=== PATIENT | male | born 1965 | race Caucasian/White ===

== ENCOUNTER 2020-07-01 11:34 | Inpatient (IN) | payer MEDICAID ==
[~2020-07-01] VITALS: Ht 188 cm; Wt 92.6 kg
[~2020-07-01 11:34] MED LIST: ALLE25CA OR; CELE20TA; DEPA500T2; DEPAKOTE ER PO; DEPLIN; HALO1TAB21 OR; HALO1TAB29 PO; HYDR25TA6; KLON1TAB OR; LIPI20TA; LIPI20TA OR; MINI2CAP PO; NO HOME MEDS; PAXI40TA; PAXI40TA OR; REQU1TAB14; RISP2TAB12 OR; TRAZ100T OR; TRAZ100T2 PO; WELL100T2 OR; WELL100T2 PO; XANA0.5T; ZETI10TA; ZETI10TA OR; ZYPR10TA; ZYPR15TA OR; ZYPR1TAB4 PO; ZYPR20TA OR; ZYPR5TAB OR
[2020-07-01] MEDS ORDERED: PARO20TA3 PO (11:45)
[2020-07-01] MEDS ORDERED: SIMV40TA20 PO (11:45)
[2020-07-01] MEDS ORDERED: OMEP-221 PO (11:45)
[2020-07-01 12:10] LABS: HEMATOCRIT 42.1 % (42.0-52.0); HEMOGLOBIN 14.1 g/dl (13.5-17.5); MEAN CORPUSCULAR HEMOGLOBIN 31.1 pg (27.0-33.0); MEAN CORPUSCULAR HGB CONC 33.5 g/dl (32.0-36.5); MEAN CORPUSCULAR VOLUME 92.9 fl (80.0-96.0); PLATELET COUNT, AUTOMATED 332 10^3/uL (150-450); RED BLOOD COUNT 4.53 10^6/uL (4.30-6.10); WHITE BLOOD COUNT 8.5 10^3/uL (4.0-10.0)
[2020-07-01 12:37] LABS: AMPHETAMINES LEVEL URINE NEGATIVE (NEGATIVE); BARBITURATES URINE NEGATIVE (NEGATIVE); BENZODIAZEPINES URINE NEGATIVE (NEGATIVE); CANNABINOIDS URINE NEGATIVE (NEGATIVE); COCAINE METABOLITE URINE NEGATIVE (NEGATIVE); METHADONE URINE NEGATIVE (NEGATIVE); OPIATES URINE NEGATIVE (NEGATIVE); PHENCYCLIDINE URINE NEGATIVE (NEGATIVE)
[2020-07-01 12:51] LABS: ACETAMINOPHEN LEVEL < 2.0 UG/ML (10.0-30.0); ALBUMIN 4.1 GM/DL (3.2-5.2); ALT/SGPT 25 U/L (12-78); BILIRUBIN,DIRECT 0.1 MG/DL (0.0-0.2); BILIRUBIN,TOTAL 0.4 MG/DL (0.2-1.0); BLOOD UREA NITROGEN 13 MG/DL (7-18); CALCIUM LEVEL 9.6 MG/DL (8.5-10.1); CARBON DIOXIDE LEVEL 30 MEQ/L (21-32); CHLORIDE LEVEL 104 MEQ/L (98-107); CREATININE FOR GFR 1.06 MG/DL (0.70-1.30); ETHYL ALCOHOL (ETHANOL) < 0.003 % (0.000-0.010); GLOMERULAR FILTRATION RATE > 60.0 (>56); GLUCOSE, FASTING 92 MG/DL (70-100); SALICYLATE LEVEL < 1.7 MG/DL (5.0-30.0); SODIUM LEVEL 138 MEQ/L (136-145); TOTAL PROTEIN 7.6 GM/DL (6.4-8.2)
[2020-07-01] MEDS ORDERED: OLAN15TA PO (13:26)
[2020-07-01] MEDS ORDERED: MOM 30ML SUSPENSION UDC PO PRN (15:00)
[2020-07-01] MEDS ORDERED: traZODone 50 MG TAB PO PRN (15:00)
[2020-07-01] MEDS ORDERED: MAALOX 30 ML SUSP *UDC PO PRN (15:00)
[2020-07-01 16:07] VITALS: BP 132/84
[2020-07-01] MEDS ORDERED: OLANZapine 5 MG TAB PO SCH (21:00)
[2020-07-02 06:18] VITALS: BP 123/74
[2020-07-02] MEDS: PARoxetine 20 MG TAB PO SCH (08:29)
[2020-07-02] MEDS: SIMVASTATIN 40 MG TAB PO SCH (08:29)
[2020-07-02] MEDS: OMEPRAZOLE 20 MG CAP PO SCH (08:29)
[2020-07-02] MEDS ORDERED: FLUBLOK(EGG FREE)(QUAD)INFLUENZA VACC 0.5ML SYRINGE 18YRS & OLDER IM ONE (09:00)
--- NOTE | 2020-07-02 10:24 | MHHPEPDOC ---
[facility] History & Physical History and Physical DATE OF ADMISSION: Jul 01, 2020 at 15:43 Subjective HPI: Dayron is admitted to the inpatient mental health unit after he brings himself into the unit. Patient reports a history of schizophrenia and began to think of very strange things such as thoughts that he would be hit by a car or a plane would crash into him. He reports this activity made him feel much more impaired. He was admitted to suicidal thoughts on and off for the past year as well. He has tried different changes such as lowering his caffeine intake and his diet, but it did not change much. He has reportedly grabbed a knife with intent to slit his throat the night before presentation. MEDICATIONS: He also reports that he been off Zyprexa for such a long time and wondered if his medication needed to be adjusted. MEDICAL HISTORY: Reports history of attempts in the past, the patient was admitted on a voluntary status. The patient has a diagnosis of bipolar disorder, last admitted to inpatient mental health in 2012, hes in no current outpatient treatment. SOCIAL HISTORY - LIVING SITUATION: Resides at [facility], lives with his two brothers in [facility]. Objective Affect: Flat. Speech: Monotone. . Thought Form: Linear at times. Thought Content: No evidence of aggressive or homicidal ideation. No evidence of delusions. No thoughts of self harm. No evidence of suicidal ideation. Judgement: Fair-Poor. Insight: Fair-Poor. Assessment F25.9 Schizoaffective disorder, unspecified Plan Continue Paxil and Zyprexa with increase in Zyprexa to 20 mg daily. Term priorities are 1. Risk for suicide and 2. Altered thoughts. Estimated length of stay 1-4 days. Vital Signs Vital Signs Date Time Temp Pulse Resp B/P (MAP) Pulse Ox O2 Delivery O2 Flow Rate FiO2 07/02/20 06:18 98.3 77 12 123/74 (90) Room Air 07/01/20 16:07 96 Laboratory Data 24H Labs Laboratory Tests 2 07/01/20 11:48: Nucleated Red Blood Cells % (auto) 0.0, Anion Gap 4L, Glomerular Filtration Rate > 60.0, Calcium Level 9.6, Total Bilirubin 0.4, Direct Bilirubin 0.1, Aspartate Amino Transf (AST/SGOT) 14, Alanine Aminotransferase (ALT/SGPT) 25, Alkaline Phosphatase 92, Total Protein 7.6, Albumin 4.1, Albumin/Globulin Ratio 1.2, Thyroid Stimulating Hormone (TSH) 2.360, Salicylates Level < 1.7L, Urine Opiates Screen NEGATIVE, Urine Methadone Screen NEGATIVE, Acetaminophen Level < 2.0L, Urine Barbiturates Screen NEGATIVE, Urine Phencyclidine Screen NEGATIVE, Urine Amphetamines Screen NEGATIVE, Urine Benzodiazepines Screen NEGATIVE, Urine Cocaine Metabolite Screen NEGATIVE, Urine Cannabinoids Screen NEGATIVE, Ethyl Alcohol Level < 0.003 CBC/BMP Laboratory Tests 07/01/20 11:48 Medications Scheduled Olanzapine (Olanzapine) 15 Mg Tablet, 15 MG PO QPM, (Reported) Omeprazole (Omeprazole) 40 Mg Capsule.dr, 40 MG PO QAM, (Reported) Paroxetine HCl (Paroxetine HCl) 20 Mg Tablet, 20 MG PO QAM, (Reported) Simvastatin (Simvastatin) 40 Mg Tablet, 40 MG PO QAM, (Reported) Allergies Coded Allergies: No Known Allergies (Verified , 09/09/03) LUIS ENRIQUE ESPINAL DO Jul 02, 2020 10:23
--- NOTE | 2020-07-02 12:30 | HPEPDOC ---
[facility] Medical History & Physical Date of Admission Jul 02, 2020 Date of Service: Jul 02, 2020 Attending Physician: ERIK ALMANZA MD History and Physical CHIEF COMPLAINT: suicidal ideation HISTORY OF PRESENT ILLNESS: Mr. Nunez is a 55-year-old male with history of hypertension, schizoaffective disorder, currently not on treatment. He presented to the ED after feelings of tremendous anxiety, overwhelming emotions, which led him to develop suicidal ideation. He went to the kitchen knife with intent to harm himself. He grabbed a kitchen knife and began rubbing it on his neck and abdomen, but the knife was too dull as he reports. He requested to be admitted to [facility] for safety. Vitals are normal and stable. There are no acute abnormalities on lab work. PAST MEDICAL HISTORY: Schizoaffective disorder HTN Hypercholesterolemia GERD PAST SURGICAL HISTORY: hx of lipoma excision, back of R leg, R forearm x 2 SOCIAL HISTORY: Patient denies smoking Patient denies etoh use Patient denies illicit drug use ALLERGIES: Please see below. REVIEW OF SYSTEMS: CONSTITUTIONAL: patient denies fevers, chills HEENT: patient denies blurred vision, loss of vision, headache,. CARDIOVASCULAR: patient denies chest pain, palpitations. RESPIRATORY: patient denies shortness of breath, cough, hemoptysis. GASTROINTESTINAL: patient denies abdominal pain, n/v/d, blood in stool. GENITOURINARY: patient denies dysuria, discharge. SKIN: patient denies rashes. MUSCULOSKELETAL: patient denies joint pain, neck pain. NEUROLOGICAL: patient denies focal weakness, numbness, seizures. PSYCHIATRIC: patient denies SI/HI. ENDOCRINE: patient denies polyuria, heat intolerance, cold intolerance. HEMATOLOGIC/LYMPHATIC: patient denies easy bruising. HOME MEDICATIONS: Please see below. PHYSICAL EXAMINATION: VITAL SIGNS: please see below General: NAD, comfortable HEENT: PERRLA, EOMI, sclerae clear Neck: supple, normal ROM, no JVD Respiratory: lungs CTAB, no wheeze, no rales, no crackles CVS: RRR, normal S1, S2, no murmurs Abdo: soft, no masses, no hepatosplenomegaly, BS+, no rebound tenderness Extremities: no edema, pulses 2+ MSK: no joint deformities, normal ROM Neuro: no focal neuro deficits, moving all 4 extremities, CN2-12 intact. Strength 5/5 in all 4 extremities. No nystagmus. Psych: calm, cooperative, AAO x 3 LABORATORY DATA: See below. MICROBIOLOGY: Please see below. ASSESSMENT: 55-year-old male with a history of hypertension and schizoaffective disorder, admitted to [facility] for anxiety and suicidal ideation. Hospitalist was consulted to assist in management of medical issues. PLAN: #Suicidal ideation: per psychiatry #Schizoaffective disorder: #HTN: BP well controlled off medication #Hypercholesterolemia: takes simvastatin. check lipid panel as outpatient, cardiac risk factor management per PCP. #GERD: ppi Thank you for the consult. Please re-consult as needed. Vital Signs Vital Signs Date Time Temp Pulse Resp B/P (MAP) Pulse Ox O2 Delivery O2 Flow Rate FiO2 07/02/20 06:18 98.3 77 12 123/74 (90) Room Air 07/01/20 16:07 96 Home Medications Scheduled Olanzapine (Olanzapine) 15 Mg Tablet, 15 MG PO QPM Omeprazole (Omeprazole) 40 Mg Capsule.dr, 40 MG PO QAM Paroxetine HCl (Paroxetine HCl) 20 Mg Tablet, 20 MG PO QAM Simvastatin (Simvastatin) 40 Mg Tablet, 40 MG PO QAM Allergies Coded Allergies: No Known Allergies (Verified , 09/09/03) A-FIB/CHADSVASC A-FIB History Current/History of A-Fib/PAF?: No Current PO Anticoag Therapy: No ERIK ALMANZA MD Jul 02, 2020 12:30
[2020-07-02 16:11] VITALS: BP 132/79
[2020-07-02] MEDS: OLANZapine 10 MG TAB PO SCH (20:51)
[2020-07-03 06:22] VITALS: BP 132/74
[2020-07-03] MEDS: OMEPRAZOLE 20 MG CAP PO SCH (09:45)
[2020-07-03] MEDS: PARoxetine 20 MG TAB PO SCH (09:45)
[2020-07-03] MEDS: SIMVASTATIN 40 MG TAB PO SCH (09:45)
--- NOTE | 2020-07-03 15:51 | MHIPNPDOC ---
[facility] Progress Note Progress Note DATE OF SERVICE: 07/03/20 HISTORY: Patient is a 55 year old Single, Disabled, Domiciled, Male who admitted to [facility] after he had reported increased psychotic symptoms of broad [place], rumination and preoccupation that the house may burn, or something bad might happen. He reports that he feels that due to exertion that this increased his anxiety which lead to increased anxiety, preoccupation that he was hearing the TV and segments of the TV became real life for him. He was reporting wishing to be . VITAL SIGNS: See below. NEW TEST RESULTS: CURRENT MEDICATIONS: See below. MENTAL STATUS EXAMINATION: Patient is a 55-year old male, who is reporting feeling some improvement . Speech: Is fluid and conversant Language skills are good. Thought processes including: reality-based, linear and goal oriented. Thought content: reports mild broadcasting and mild paranoia, decreasing depression and anxiety . Abstract reasoning, and computation: good. Description of associations: mild paranoia, reports that TV broadcast and what he watches feels like a predictor of what might happen in his life. I.E. Fires on TV = his house will burn to the ground Description of abnormal or psychotic thoughts: paranoia that the TV predicts what will happen to him Judgment: fair Insight: Fair Orientation: Alert and oriented to person, place, time and situation Recent and remote memory: intact Attention span and concentration: good Language: expansive Fund of knowledge: average Mood: mildly depressed Affect: congruent with mood DIAGNOSES: 1. Schizoaffective Disorder ASSESSMENT: Patient is reporting that he is feeling calm. States that this admission is better than his five other admissions, in that he is improving faster, feels calmer. He was calm and cooperative in the interview. MANAGEMENT PLAN: We will discharge him when he is stable. He may be stable for discharge tomorrow. TIME SPENT: 20 minutes. Vital Signs Vital Signs Date Time Temp Pulse Resp B/P (MAP) Pulse Ox O2 Delivery O2 Flow Rate FiO2 07/03/20 06:22 96.7 84 18 132/74 (93) 99 Room Air Current Medications Current Medications Medications (Trade) Dose Ordered Sig/Gregg Route PRN Reason Start Time Stop Time Status Last Admin Dose Admin Acetaminophen (Tylenol Tab) 650 mg Q6HP PRN PO PAIN OR FEVER 07/01/20 15:00 Al Hydrox/Mg Hydrox/Simethicone (Mylanta) 30 ml Q4HP PRN PO INDIGESTION 07/01/20 15:00 Home Med (Med Rec Complete!) ASDIRECTED XX 07/01/20 13:30 07/01/20 13:29 DC Magnesium Hydroxide (Milk Of Magnesia) 30 ml DAILYPRN PRN PO CONSTIPATION 07/01/20 15:00 Olanzapine (ZyPREXA) 15 mg QPM PO 07/01/20 21:00 07/02/20 16:07 DC 07/01/20 20:49 Olanzapine (ZyPREXA) 20 mg QPM PO 07/02/20 21:00 07/02/20 20:51 Omeprazole (PriLOSEC) 40 mg QAM PO 07/02/20 09:00 07/03/20 09:45 Paroxetine HCl (PAXil) 20 mg QAM PO 07/02/20 09:00 07/03/20 09:45 Simvastatin (Zocor) 40 mg QAM PO 07/02/20 09:00 07/03/20 09:45 Trazodone HCl (Desyrel) 50 mg QHSP PRN PO INSOMNIA 07/01/20 15:00 Allergies Coded Allergies: No Known Allergies (Verified , 09/09/03) JOSE RAMON SANTIAGO NP Jul 03, 2020 13:09
[2020-07-03 17:35] VITALS: BP 141/85
[2020-07-03] MEDS: OLANZapine 10 MG TAB PO SCH (21:17)
[2020-07-04] MEDS: OMEPRAZOLE 20 MG CAP PO SCH (08:39)
[2020-07-04] MEDS: PARoxetine 20 MG TAB PO SCH (08:39)
[2020-07-04] MEDS: SIMVASTATIN 40 MG TAB PO SCH (08:39)
[2020-07-04] MEDS: ACETAMINOPHEN TAB 650MG DOSE (2X325MG) PO PRN ×2 (08:41→16:44)
--- NOTE | 2020-07-04 09:57 | MHIPNPDOC ---
[facility] Progress Note Progress Note DATE OF SERVICE: 07/04/20 HISTORY: Patient is a 55 year old Single, Disabled, Domiciled, Male who admitted to [facility] after he had reported increased psychotic symptoms of broadcasting, rumination and preoccupation that the house may burn, or something bad might happen. He reports that he feels that due to exertion that this increased his anxiety which lead to increased anxiety, preoccupation that he was hearing the TV and segments of the TV became real life for him. He was reporting wishing to be . VITAL SIGNS: See below. NEW TEST RESULTS: CURRENT MEDICATIONS: See below. MENTAL STATUS EXAMINATION: Patient is a 55-year old male, who is reporting depression and anxiety with suicidal ideation. He appears his stated age, his hygiene and grooming is fair. He makes good eye contact. He states he us feeling some improvement in depressive and anxiety symptoms today. Speech: Is fluid and conversant Language skills are good. Thought processes including: reality-based, linear and goal oriented. Mildly ruminative Thought content: decreasing depression and anxiety. Reported mild delusional thinking about the TV broadcasting ideas to him. Abstract reasoning, and computation: good. Description of associations: decreased paranoia Description of abnormal or psychotic thoughts: paranoia that the TV predicts what will happen to him Judgment: fair Insight: Fair Orientation: Alert and oriented to person, place, time and situation Recent and remote memory: intact Attention span and concentration: good Language: expansive Fund of knowledge: average Mood: I am feeling fine, observed as anxious and worried Affect: congruent with mood DIAGNOSES: 1. Schizoaffective Disorder ASSESSMENT: Reporting no depression, no anxiety. 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 Reports that in the past, he has been discharged too soon, and he feels that based on past experiences he should not leave to early. He wants the medicines to build in his system Patient observed as anxious and worried. He was calm and cooperative in the interview. MANAGEMENT PLAN: We will discharge him when he is stable. Patient was educated on his medications. At this time, he feels strongly that if he returns home with anxiety of pushing himself to work as hard as his brothers, his symptoms would be so tenuous that rehospitalization would be likely. TIME SPENT: 15 minutes. Vital Signs Vital Signs Date Time Temp Pulse Resp B/P (MAP) Pulse Ox O2 Delivery O2 Flow Rate FiO2 07/03/20 17:35 97.8 86 16 141/85 (103) 100 07/03/20 06:22 Room Air Current Medications Current Medications Medications (Trade) Dose Ordered Sig/Gregg Route PRN Reason Start Time Stop Time Status Last Admin Dose Admin Acetaminophen (Tylenol Tab) 650 mg Q6HP PRN PO PAIN OR FEVER 07/01/20 15:00 07/04/20 08:41 Al Hydrox/Mg Hydrox/Simethicone (Mylanta) 30 ml Q4HP PRN PO INDIGESTION 07/01/20 15:00 Home Med (Med Rec Complete!) ASDIRECTED XX 07/01/20 13:30 07/01/20 13:29 DC Magnesium Hydroxide (Milk Of Magnesia) 30 ml DAILYPRN PRN PO CONSTIPATION 07/01/20 15:00 Olanzapine (ZyPREXA) 15 mg QPM PO 07/01/20 21:00 07/02/20 16:07 DC 07/01/20 20:49 Olanzapine (ZyPREXA) 20 mg QPM PO 07/02/20 21:00 07/03/20 21:17 Omeprazole (PriLOSEC) 40 mg QAM PO 07/02/20 09:00 07/04/20 08:39 Paroxetine HCl (PAXil) 20 mg QAM PO 07/02/20 09:00 07/04/20 08:39 Simvastatin (Zocor) 40 mg QAM PO 07/02/20 09:00 07/04/20 08:39 Trazodone HCl (Desyrel) 50 mg QHSP PRN PO INSOMNIA 07/01/20 15:00 Allergies Coded Allergies: No Known Allergies (Verified , 09/09/03) JOSE RAMON SANTIAGO NP Jul 04, 2020 09:57
[2020-07-04 17:57] VITALS: BP 143/89
[2020-07-04] MEDS: OLANZapine 10 MG TAB PO SCH (20:52)
[2020-07-05 06:46] VITALS: BP 132/77
[2020-07-05] MEDS: OMEPRAZOLE 20 MG CAP PO SCH (08:48)
[2020-07-05] MEDS: PARoxetine 20 MG TAB PO SCH (08:48)
[2020-07-05] MEDS: SIMVASTATIN 40 MG TAB PO SCH (08:48)
[2020-07-05] MEDS ORDERED: PARO20TA3 PO (12:55)
[2020-07-05] MEDS ORDERED: OMEP-221 PO (12:55)
[2020-07-05] MEDS ORDERED: OLAN10TA2 PO (12:55)
[2020-07-05] MEDS ORDERED: SIMV40TA20 PO (12:55)
--- NOTE | 2020-07-05 15:28 | MHIPNPDOC ---
[facility] Progress Note Progress Note DATE OF SERVICE: 07/05/20 HISTORY: Patient is a 55 year old Single, Disabled, Domiciled, Male who admitted to [facility] after he had reported increased psychotic symptoms of broadcasting, rumination and preoccupation that the house may burn, or something bad might happen. He reports that he feels that due to exertion that this increased his anxiety which lead to increased anxiety, preoccupation that he was hearing the TV and segments of the TV became real life for him. He was reporting wishing to be . He states that he had a knife to his throat but the knife was too dull. VITAL SIGNS: See below. NEW TEST RESULTS: CURRENT MEDICATIONS: See below. MENTAL STATUS EXAMINATION: Patient is a 55-year old male, who had reported depression and anxiety with suicidal ideation. He appears his stated age, his hygiene and grooming is fair. He makes good eye contact. He states he is feeling better and that his depression and anxiety is improved to the point that he feels that he should be discharged tomorrow Speech: Is fluid and conversant Language skills are good. Thought processes including: reality-based, linear and goal oriented. Thought content: decreasing depression and anxiety. Abstract reasoning, and computation: good. Description of associations: no reports of paranoia Description of abnormal or psychotic thoughts: none noted or reported Judgment: fair Insight: Fair Orientation: Alert and oriented to person, place, time and situation Recent and remote memory: intact Attention span and concentration: good Language: expansive Fund of knowledge: average Mood: I am feeling good Affect: congruent with mood DIAGNOSES: 1. Schizoaffective Disorder ASSESSMENT: Reporting no depression, no anxiety. He was calm and cooperative in the interview. Patient reports he had a good conversation with his sister and that he feels he can manage at home. His family is supportive and can help him with reducing his stressors. He feels that he can manage at home. MANAGEMENT PLAN: Patient reports being stable. Patient was educated on his medications. At this time, he feels strongly that he can be discharged tomorrow. Orders for discharge place and medications were electronically sent to [facility] in [place] TIME SPENT: 25 minutes. Vital Signs Vital Signs Date Time Temp Pulse Resp B/P (MAP) Pulse Ox O2 Delivery O2 Flow Rate FiO2 07/05/20 06:46 97.2 79 16 132/77 (95) 98 10/5/20 06:22 Room Air Current Medications Current Medications Medications (Trade) Dose Ordered Sig/Gregg Route PRN Reason Start Time Stop Time Status Last Admin Dose Admin Acetaminophen (Tylenol Tab) 650 mg Q6HP PRN PO PAIN OR FEVER 07/01/20 15:00 07/04/20 16:44 Al Hydrox/Mg Hydrox/Simethicone (Mylanta) 30 ml Q4HP PRN PO INDIGESTION 07/01/20 15:00 Home Med (Med Rec Complete!) ASDIRECTED XX 07/01/20 13:30 07/01/20 13:29 DC Magnesium Hydroxide (Milk Of Magnesia) 30 ml DAILYPRN PRN PO CONSTIPATION 07/01/20 15:00 Olanzapine (ZyPREXA) 15 mg QPM PO 07/01/20 21:00 07/02/20 16:07 DC 07/01/20 20:49 Olanzapine (ZyPREXA) 20 mg QPM PO 07/02/20 21:00 07/04/20 20:52 Omeprazole (PriLOSEC) 40 mg QAM PO 07/02/20 09:00 07/05/20 08:48 Paroxetine HCl (PAXil) 20 mg QAM PO 07/02/20 09:00 07/05/20 08:48 Simvastatin (Zocor) 40 mg QAM PO 07/02/20 09:00 07/05/20 08:48 Trazodone HCl (Desyrel) 50 mg QHSP PRN PO INSOMNIA 07/01/20 15:00 Allergies Coded Allergies: No Known Allergies (Verified , 09/09/03) JOSE RAMON SANTIAGO NP Jul 05, 2020 15:18
[2020-07-05 17:13] VITALS: BP 129/73
[2020-07-05] MEDS: OLANZapine 10 MG TAB PO SCH (20:35)
[2020-07-06 06:26] VITALS: BP 121/74
[2020-07-06] MEDS: PARoxetine 20 MG TAB PO SCH (09:13)
[2020-07-06] MEDS: OMEPRAZOLE 20 MG CAP PO SCH (09:13)
[2020-07-06] MEDS: SIMVASTATIN 40 MG TAB PO SCH (09:13)
--- NOTE | 2020-07-06 15:15 | MHDSPDOC ---
[facility] Discharge Summary Discharge Summary DATE OF ADMISSION: Jul 01, 2020 at 15:43 DATE OF DISCHARGE: Jul 06, 2020 at 10:10 DISCHARGE DIAGNOSES: 1. Schizoaffective Disorder REASON FOR ADMISSION: Patient is a 55 year old Single, Disabled, Domiciled, Male who admitted to [facility] after he had reported increased psychotic symptoms of broadcasting, rumination and preoccupation that the house may burn, or something bad might happen. He reports that he feels that due to exertion that this increased his anxiety which lead to increased anxiety, preoccupation that he was hearing the TV and segments of the TV became real life for him. He was reporting wishing to be . He states that he had a knife to his throat but the knife was too dull. Patient lives with his two older brothers, he states that he was helping his brothers get wood cut for the winter. This is task is done briskly and he reports that during this chore, he could feel himself becoming anxious, overwhelmed and nervous. He feels that this was the catalyst to his decompensation. CONSULTANTS INVOLVED: See Medical H + P consult by Medical provider TREATMENT AND PROGRESS ON THE UNIT : Patient was admitted to the [facility] on a 9.39 legal status he was afforded the following treatment modalities: 1) Individual Therapy 2) Group Therapy 3) Medication Management 4) Milieu Therapy 5) Safe Environment HOSPITAL COURSE: Patient was reporting depression, feelings of being overwhelmed and suicidal thinking. 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 He states that he felt stressed, overwhelmed and increasingly had depressive symptoms and suicidal thoughts. We increased his Zyprexa 15 mg to Zyprexa 20 mg which he reported was effective and he stated that this was the best he had felt compared to all other hospitalizations. DISCHARGE ASSESSMENT: Patient is stable, he reports himself being stable "I don't feel depressed or anxious, and I have not thought about hurting myself" He reports that his siblings have rallied behind him and state that they will be supportive and reduce his workload. Patient states that he would like the opportunity to get out of his home more often, complaining that he doesn't have much socialization until his brothers are home. MENTAL STATUS EXAMINATION ON DISCHARGE: Patient is a 55-year old male, who had reported depression and anxiety with suicidal ideation. He appears his stated age, his hygiene and grooming is fair. He makes good eye contact. He states he is feeling better and that his depression and anxiety is improved to the point that he feels that he should be discharged tomorrow Speech: Is fluid and conversant Language skills are good. Thought processes including: reality-based, linear and goal oriented. Thought content: denied depression and anxiety. No suicidal ideation Abstract reasoning, and computation: good. Description of associations: no reports of paranoia Description of abnormal or psychotic thoughts: none noted or reported Judgment: fair Insight: Fair Orientation: Alert and oriented to person, place, time and situation Recent and remote memory: intact Attention span and concentration: good Language: expansive Fund of knowledge: average Mood: I am feeling good Affect: congruent with mood MEDICATIONS ON DISCHARGE: See Medication Reconciliation PLAN/FOLLOWUP ARRANGEMENTS: [facility]. Patient's sister called, s/p his discharge and reported that he could not get his Zyprexa Rx filled due to insurance not authorizing it. Resource Development Manager attempted to get pre-authorization with no results. Resource Development Manager called sister to reinforce taking his medications at home until he is able to fill the increased Zyprexa order The amount of time spent in the coordination of care for this patient was approximately 20 minutes. Vital Signs/I&Os Vital Signs Date Time Temp Pulse Resp B/P (MAP) Pulse Ox O2 Delivery O2 Flow Rate FiO2 07/06/20 06:26 97.9 76 16 121/74 (90) 97 Room Air Medications Scheduled Olanzapine (Olanzapine) 10 Mg Tablet, 20 MG PO QPM for Antipsychotic, #14 Omeprazole (Omeprazole) 40 Mg Capsule.dr, 40 MG PO QAM for Acid Reflux, #7 Paroxetine HCl (Paroxetine HCl) 20 Mg Tablet, 20 MG PO QAM for Depression, #7 Simvastatin (Simvastatin) 40 Mg Tablet, 40 MG PO QAM for Cholesterol, #7 Allergies Coded Allergies: No Known Allergies (Verified , 09/09/03) JOSE RAMON SANTIAGO NP Jul 06, 2020 15:15
[2020-07-07] MEDS ORDERED: ZYPR15TA PO (13:54)
== END 2020-07-06 10:10 | disposition home or self-care (01) | DRG 750 ==
LOC: M ED 11:34 → M ED INP 15:43 → M PSY 16:00
PROVIDERS: ADMIT Psychiatry & Neurology Addiction Medicine; ATTEND Psychiatry & Neurology Psychiatry
DX: F25.9 Schizoaffective disorder, unspecified (principal); I10 Essential (primary) hypertension; E78.00 Pure hypercholesterolemia, unspecified; K21.9 Gastro-esophageal reflux disease without esophagitis; Z79.899 Other long term (current) drug therapy

== ENCOUNTER 2021-06-25 16:25 | Inpatient (IN) | payer MEDICAID, OTHER ==
[~2021-06-25] VITALS: Ht 188 cm; Wt 75.8 kg
[~2021-06-25 16:25] MED LIST changes: +OLAN15TA13 PO; +OLAN1TAB20 PO; +OMEP40CA5 PO; +PARO20TA3 PO; +SIMV40TA20 PO; +ZYPR15TA PO
[2021-06-25] MEDS ORDERED: OLAN20TA14 PO (16:35)
[2021-06-25] MEDS ORDERED: SIMV40TA20 PO (18:38)
[2021-06-25] MEDS ORDERED: OMEP40CA5 PO (18:38)
[2021-06-25] MEDS ORDERED: PARO20TA4 PO (18:38)
[2021-06-25] MEDS ORDERED: HOME MED LIST COMPLETE! XX SCH (18:40)
[2021-06-25] MEDS ORDERED: OLANZapine ORAL DISINTEGRATING TAB 5MG PO PRN (19:45)
[2021-06-25] MEDS ORDERED: ACETAMINOPHEN TAB 650MG DOSE (2X325MG) PO PRN (19:45)
[2021-06-25] MEDS ORDERED: MAALOX 30 ML SUSP *UDC PO PRN (19:45)
[2021-06-25] MEDS ORDERED: MOM 30ML SUSPENSION UDC PO PRN (19:45)
[2021-06-25] MEDS ORDERED: PALIPERIDONE 6 MG ER TAB (INVEGA) PO SCH (21:00)
[2021-06-25 22:24] VITALS: BP 152/90
[2021-06-25] MEDS: SIMVASTATIN 40 MG TAB PO SCH (22:56)
[2021-06-25] MEDS: traZODone 50 MG TAB PO PRN (22:56)
[2021-06-26 05:47] VITALS: BP 135/73
[2021-06-26] MEDS: PARoxetine 20MG TABLET PO SCH (08:17)
[2021-06-26] MEDS: OMEPRAZOLE 20MG CAP PO SCH (08:17)
[2021-06-26 16:11] VITALS: BP 110/58
[2021-06-26] MEDS: OLANZapine 10 MG TAB PO SCH (21:42)
[2021-06-26] MEDS: SIMVASTATIN 40 MG TAB PO SCH (21:42)
[2021-06-27 06:44] VITALS: BP 114/64
[2021-06-27 07:18] LABS: CHOLESTEROL RISK RATIO 3.581 (<5)
[2021-06-27] MEDS: OMEPRAZOLE 20MG CAP PO SCH (08:49)
[2021-06-27] MEDS: PARoxetine 20MG TABLET PO SCH (08:50)
[2021-06-27 16:18] VITALS: BP 113/69
[2021-06-27] MEDS: traZODone 50 MG TAB PO PRN (22:54)
[2021-06-27] MEDS: SIMVASTATIN 40 MG TAB PO SCH (22:56)
[2021-06-27] MEDS: OLANZapine 10 MG TAB PO SCH (22:56)
[2021-06-28 07:10] VITALS: BP 144/87
[2021-06-28] MEDS: OMEPRAZOLE 20MG CAP PO SCH (10:21)
[2021-06-28] MEDS: PARoxetine 20MG TABLET PO SCH (10:22)
[2021-06-28 16:00] VITALS: BP 111/82
[2021-06-28] MEDS ORDERED: ARIPiprazole 10 MG TAB PO SCH (17:00)
[2021-06-28] MEDS ORDERED: OLANZapine 10 MG TAB PO SCH (21:00)
[2021-06-28] MEDS: SIMVASTATIN 40 MG TAB PO SCH (21:01)
[2021-06-29 06:28] VITALS: BP 129/66
[2021-06-29] MEDS: PARoxetine 20MG TABLET PO SCH (08:41)
[2021-06-29] MEDS: OMEPRAZOLE 20MG CAP PO SCH (08:41)
[2021-06-29] MEDS ORDERED: PALIPERIDONE 6 MG ER TAB (INVEGA) PO SCH (09:00)
[2021-06-29] MEDS: OLANZapine ORAL DISINTEGRATING TAB 5MG PO PRN (09:35)
[2021-06-29] MEDS ORDERED: BENZTROPINE 0.5 MG TAB PO PRN (10:50)
[2021-06-29] MEDS ORDERED: LORazepam 1 MG TAB PO ONE (14:25)
[2021-06-29 16:14] VITALS: BP 132/70
[2021-06-29] MEDS: OLANZapine 5 MG TAB PO SCH (21:49)
[2021-06-29] MEDS: SIMVASTATIN 40 MG TAB PO SCH (21:49)
[2021-06-30 06:16] VITALS: BP 122/61
[2021-06-30] MEDS: PALIPERIDONE 3 MG ER TAB (INVEGA) PO SCH (09:16)
[2021-06-30] MEDS: OMEPRAZOLE 20MG CAP PO SCH (09:16)
[2021-06-30] MEDS: PARoxetine 20MG TABLET PO SCH (09:16)
[2021-06-30 14:51] VITALS: BP 135/62
[2021-06-30] MEDS: LORazepam 0.5 MG TAB PO PRN (14:54)
[2021-06-30] MEDS ORDERED: LORazepam 0.5 MG TAB PO ONE ×2 (15:45→16:00)
[2021-06-30] MEDS: OLANZapine 5 MG TAB PO SCH (20:12)
[2021-06-30] MEDS: SIMVASTATIN 40 MG TAB PO SCH (20:12)
[2021-07-01 06:03] VITALS: BP 122/69
[2021-07-01] MEDS: OMEPRAZOLE 20MG CAP PO SCH (08:53)
[2021-07-01] MEDS: PARoxetine 20MG TABLET PO SCH (08:53)
[2021-07-01] MEDS: PALIPERIDONE 3 MG ER TAB (INVEGA) PO SCH (08:53)
[2021-07-01 16:38] VITALS: BP 103/88
[2021-07-01] MEDS: SIMVASTATIN 40 MG TAB PO SCH (23:07)
[2021-07-02 07:12] VITALS: BP 116/61
[2021-07-02] MEDS: PALIPERIDONE 3 MG ER TAB (INVEGA) PO SCH (09:47)
[2021-07-02] MEDS: OMEPRAZOLE 20MG CAP PO SCH (09:47)
[2021-07-02] MEDS: PARoxetine 20MG TABLET PO SCH (09:47)
[2021-07-02] MEDS ORDERED: TUBERCULIN PPD 5 UNITS/0.1 ML ID ONE (12:00)
[2021-07-02 18:11] VITALS: BP 136/86
[2021-07-02] MEDS: traZODone 50 MG TAB PO PRN (20:48)
[2021-07-02] MEDS: SIMVASTATIN 40 MG TAB PO SCH (20:48)
[2021-07-03] MEDS: LORazepam 0.5 MG TAB PO PRN (02:10)
[2021-07-03 04:10] VITALS: BP 99/60
[2021-07-03 04:30] VITALS: BP 139/59
[2021-07-03 06:42] VITALS: BP 122/61
[2021-07-03 07:30] LABS: BASO % 0.2 % (0.0-1.0); EOS # 0.1 10^3/uL (0.0-0.5); EOS % 0.7 % (0.0-3.0); HEMATOCRIT 39.6 % (42.0-52.0); HEMOGLOBIN 13.4 g/dl (13.5-17.5); LYMPH % 8.6 % (24.0-44.0); MEAN CORPUSCULAR HEMOGLOBIN 32.4 pg (27.0-33.0); MEAN CORPUSCULAR HGB CONC 33.8 g/dl (32.0-36.5); MEAN CORPUSCULAR VOLUME 95.9 fl (80.0-96.0); MONO # 1.2 10^3/uL (0.0-0.8); MONO % 9.7 % (2.0-8.0); NEUTROPHILS # 9.8 10^3/uL (1.5-8.5); NEUTROPHILS % 80.5 % (36.0-66.0); PLATELET COUNT, AUTOMATED 285 10^3/uL (150-450); RED BLOOD COUNT 4.13 10^6/uL (4.30-6.10); WHITE BLOOD COUNT 12.1 10^3/uL (4.0-10.0)
[2021-07-03 07:47] LABS: ALBUMIN 3.6 GM/DL (3.2-5.2); ALT/SGPT 27 U/L (12-78); BILIRUBIN,TOTAL 0.4 MG/DL (0.2-1.0); BLOOD UREA NITROGEN 14 MG/DL (7-18); CALCIUM LEVEL 9.7 MG/DL (8.5-10.1); CARBON DIOXIDE LEVEL 29 MEQ/L (21-32); CHLORIDE LEVEL 107 MEQ/L (98-107); CREATININE FOR GFR 1.22 MG/DL (0.70-1.30); GLOMERULAR FILTRATION RATE > 60.0 (>56); GLUCOSE, FASTING 108 MG/DL (70-100); MAGNESIUM LEVEL 2.2 MG/DL (1.8-2.4); POTASSIUM SERUM 3.6 MEQ/L (3.5-5.1); SODIUM LEVEL 142 MEQ/L (136-145); TOTAL PROTEIN 6.6 GM/DL (6.4-8.2)
[2021-07-03] MEDS: PALIPERIDONE 3 MG ER TAB (INVEGA) PO SCH (08:51)
[2021-07-03] MEDS: PARoxetine 20MG TABLET PO SCH (08:51)
[2021-07-03] MEDS: OMEPRAZOLE 20MG CAP PO SCH (08:51)
[2021-07-03] MEDS ORDERED: PALIPERIDONE PALMITATE 234MG/1.5ML INJ (INVEGA)(FREE PSY INPT ONLY) IM ONE (09:00)
[2021-07-03 19:23] VITALS: BP 120/69
[2021-07-03] MEDS: SIMVASTATIN 40 MG TAB PO SCH (23:13)
[2021-07-04 06:00] VITALS: BP 115/58
[2021-07-04] MEDS: OMEPRAZOLE 20MG CAP PO SCH (08:25)
[2021-07-04] MEDS: PARoxetine 20MG TABLET PO SCH (08:26)
[2021-07-04] MEDS: PALIPERIDONE 3 MG ER TAB (INVEGA) PO SCH (09:00)
[2021-07-04] MEDS ORDERED: PALIPERIDONE 3 MG ER TAB (INVEGA) PO SCH (09:00)
[2021-07-04] MEDS ORDERED: PPD DOCUMENTATION ENTRY MISC XX ONE (12:00)
[2021-07-04] MEDS ORDERED: BENZTROPINE 2 MG TAB PO PRN (14:35)
[2021-07-04 14:36] VITALS: BP 138/76
[2021-07-04 19:25] VITALS: BP 124/70
[2021-07-04] MEDS: SIMVASTATIN 40 MG TAB PO SCH (21:53)
[2021-07-05 06:30] VITALS: BP 122/60
[2021-07-05] MEDS ORDERED: PALIPERIDONE 3 MG ER TAB (INVEGA) PO SCH ×3 (09:00)
[2021-07-05] MEDS: buPROPion **XL** TABLET 150MG (WELLBUTRIN XL) PO SCH (09:14)
[2021-07-05] MEDS: PALIPERIDONE 3 MG ER TAB (INVEGA) PO SCH ×2 (09:14→20:01)
[2021-07-05] MEDS: OMEPRAZOLE 20MG CAP PO SCH (09:14)
[2021-07-05] MEDS: PARoxetine 20MG TABLET PO SCH (09:14)
[2021-07-05 11:13] LABS: RSV AMPLIFICATION NEGATIVE (NEGATIVE)
[2021-07-05 16:17] VITALS: BP 108/55
[2021-07-05 19:06] LABS: BASO % 0.3 % (0.0-1.0); EOS # 0.1 10^3/uL (0.0-0.5); EOS % 1.6 % (0.0-3.0); HEMATOCRIT 39.1 % (42.0-52.0); HEMOGLOBIN 13.1 g/dl (13.5-17.5); LYMPH # 1.1 10^3/uL (1.5-5.0); MEAN CORPUSCULAR HEMOGLOBIN 32.2 pg (27.0-33.0); MEAN CORPUSCULAR HGB CONC 33.5 g/dl (32.0-36.5); MEAN CORPUSCULAR VOLUME 96.1 fl (80.0-96.0); MONO # 0.7 10^3/uL (0.0-0.8); MONO % 7.9 % (2.0-8.0); NEUTROPHILS # 6.8 10^3/uL (1.5-8.5); NEUTROPHILS % 77.9 % (36.0-66.0); PLATELET COUNT, AUTOMATED 286 10^3/uL (150-450); RED BLOOD COUNT 4.07 10^6/uL (4.30-6.10); WHITE BLOOD COUNT 8.8 10^3/uL (4.0-10.0)
[2021-07-05 19:33] LABS: ALBUMIN 3.6 GM/DL (3.2-5.2); ALT/SGPT 26 U/L (12-78); BILIRUBIN,TOTAL 0.2 MG/DL (0.2-1.0); BLOOD UREA NITROGEN 19 MG/DL (7-18); CALCIUM LEVEL 9.4 MG/DL (8.5-10.1); CARBON DIOXIDE LEVEL 28 MEQ/L (21-32); CHLORIDE LEVEL 107 MEQ/L (98-107); CREATININE FOR GFR 1.19 MG/DL (0.70-1.30); GLOMERULAR FILTRATION RATE > 60.0 (>56); GLUCOSE, FASTING 144 MG/DL (70-100); MAGNESIUM LEVEL 2.2 MG/DL (1.8-2.4); POTASSIUM SERUM 3.9 MEQ/L (3.5-5.1); SODIUM LEVEL 142 MEQ/L (136-145); TOTAL PROTEIN 6.9 GM/DL (6.4-8.2)
[2021-07-05] MEDS: SIMVASTATIN 40 MG TAB PO SCH (20:01)
[2021-07-06 06:22] VITALS: BP 138/65
[2021-07-06] MEDS: buPROPion **XL** TABLET 150MG (WELLBUTRIN XL) PO SCH (10:47)
[2021-07-06] MEDS: OMEPRAZOLE 20MG CAP PO SCH (10:47)
[2021-07-06] MEDS: PARoxetine 20MG TABLET PO SCH (10:47)
[2021-07-06] MEDS: PALIPERIDONE 3 MG ER TAB (INVEGA) PO SCH ×2 (10:47→20:45)
[2021-07-06 19:24] VITALS: BP 130/70
[2021-07-06] MEDS: SIMVASTATIN 40 MG TAB PO SCH (20:45)
[2021-07-07] MEDS ORDERED: CEPACOL LOZENGE PO PRN (08:05)
[2021-07-07] MEDS: PALIPERIDONE 6 MG ER TAB (INVEGA) PO SCH (09:53)
[2021-07-07] MEDS: OMEPRAZOLE 20MG CAP PO SCH (09:53)
[2021-07-07] MEDS: ESCITALOPRAM OXALATE 10 MG TAB (LEXAPRO) PO SCH (09:53)
[2021-07-07] MEDS: buPROPion **XL** TABLET 150MG (WELLBUTRIN XL) PO SCH (09:53)
[2021-07-07 19:10] VITALS: BP 141/83
[2021-07-07] MEDS: SIMVASTATIN 40 MG TAB PO SCH (21:19)
[2021-07-07] MEDS: PALIPERIDONE 3 MG ER TAB (INVEGA) PO SCH (21:19)
[2021-07-08 06:39] VITALS: BP 123/65
[2021-07-08] MEDS: buPROPion **XL** TABLET 150MG (WELLBUTRIN XL) PO SCH (09:38)
[2021-07-08] MEDS: ESCITALOPRAM OXALATE 10 MG TAB (LEXAPRO) PO SCH (09:38)
[2021-07-08] MEDS: PALIPERIDONE 6 MG ER TAB (INVEGA) PO SCH (09:38)
[2021-07-08] MEDS: OMEPRAZOLE 20MG CAP PO SCH (09:38)
[2021-07-08 22:00] VITALS: BP 127/66
[2021-07-08] MEDS: SIMVASTATIN 40 MG TAB PO SCH (23:13)
[2021-07-08] MEDS: PALIPERIDONE 3 MG ER TAB (INVEGA) PO SCH (23:13)
[2021-07-08] MEDS: traZODone 25MG PER 1/2 TABLET PO PRN (23:14)
[2021-07-09] MEDS: OMEPRAZOLE 20MG CAP PO SCH (08:12)
[2021-07-09] MEDS: ESCITALOPRAM OXALATE 10 MG TAB (LEXAPRO) PO SCH (08:12)
[2021-07-09] MEDS: PALIPERIDONE 6 MG ER TAB (INVEGA) PO SCH (08:12)
[2021-07-09] MEDS: buPROPion **XL** TABLET 150MG (WELLBUTRIN XL) PO SCH (08:12)
[2021-07-09 16:44] VITALS: BP 132/77
[2021-07-09] MEDS: SIMVASTATIN 40 MG TAB PO SCH (21:00)
[2021-07-09] MEDS: PALIPERIDONE 3 MG ER TAB (INVEGA) PO SCH (21:00)
[2021-07-10 06:38] VITALS: BP 130/70
[2021-07-10] MEDS: PALIPERIDONE 6 MG ER TAB (INVEGA) PO SCH (08:57)
[2021-07-10] MEDS: OMEPRAZOLE 20MG CAP PO SCH (08:57)
[2021-07-10] MEDS: ESCITALOPRAM OXALATE 10 MG TAB (LEXAPRO) PO SCH (08:58)
[2021-07-10] MEDS ORDERED: PALIPERIDONE PALMITATE 156MG/1ML INJ(INVEGA)(FREE PSY INPT ONLY) IM ONE (09:00)
[2021-07-10 16:17] VITALS: BP 124/70
[2021-07-10] MEDS: SIMVASTATIN 40 MG TAB PO SCH (21:26)
[2021-07-10] MEDS: PALIPERIDONE 3 MG ER TAB (INVEGA) PO SCH (21:27)
[2021-07-11 06:57] VITALS: BP 132/78
[2021-07-11] MEDS: OMEPRAZOLE 20MG CAP PO SCH (08:39)
[2021-07-11] MEDS: ESCITALOPRAM OXALATE 10 MG TAB (LEXAPRO) PO SCH (08:39)
[2021-07-11] MEDS: PALIPERIDONE 6 MG ER TAB (INVEGA) PO SCH (08:39)
[2021-07-11] MEDS ORDERED: TUBERCULIN PPD 5 UNITS/0.1 ML ID ONE (13:30)
[2021-07-11 16:17] VITALS: BP 142/86
[2021-07-11] MEDS ORDERED: OLANZapine 10 MG TAB PO SCH (21:00)
[2021-07-11] MEDS: SIMVASTATIN 40 MG TAB PO SCH (21:18)
[2021-07-11] MEDS: traZODone 25MG PER 1/2 TABLET PO PRN (21:18)
[2021-07-11] MEDS: PALIPERIDONE 3 MG ER TAB (INVEGA) PO SCH (21:18)
[2021-07-12 07:40] VITALS: BP 123/68
[2021-07-12] MEDS: ESCITALOPRAM OXALATE 10 MG TAB (LEXAPRO) PO SCH (08:50)
[2021-07-12] MEDS: OMEPRAZOLE 20MG CAP PO SCH (08:50)
[2021-07-12] MEDS: PALIPERIDONE 6 MG ER TAB (INVEGA) PO SCH (08:51)
[2021-07-13] MEDS: SIMVASTATIN 40 MG TAB PO SCH ×2 (01:11→21:38)
[2021-07-13] MEDS: OLANZapine 10 MG TAB PO SCH ×3 (01:11→21:38)
[2021-07-13 07:17] VITALS: BP 129/67
[2021-07-13] MEDS: OMEPRAZOLE 20MG CAP PO SCH (09:35)
[2021-07-13] MEDS: PALIPERIDONE 6 MG ER TAB (INVEGA) PO SCH (09:35)
[2021-07-13] MEDS: ESCITALOPRAM OXALATE 10 MG TAB (LEXAPRO) PO SCH (09:35)
[2021-07-13] MEDS ORDERED: PPD DOCUMENTATION ENTRY MISC XX SCH (13:00)
[2021-07-13 16:41] VITALS: BP 98/54
[2021-07-14 06:31] VITALS: BP 12/86
[2021-07-14] MEDS: PALIPERIDONE 6 MG ER TAB (INVEGA) PO SCH (09:18)
[2021-07-14] MEDS: ESCITALOPRAM OXALATE 10 MG TAB (LEXAPRO) PO SCH (09:18)
[2021-07-14] MEDS: OMEPRAZOLE 20MG CAP PO SCH (09:18)
[2021-07-14] MEDS: OLANZapine 10 MG TAB PO SCH ×2 (09:18→21:32)
[2021-07-14 10:50] LABS: BASO % 0.3 % (0.0-1.0); EOS % 0.1 % (0.0-3.0); HEMATOCRIT 38.1 % (42.0-52.0); LYMPH # 0.7 10^3/uL (1.5-5.0); LYMPH % 5.8 % (24.0-44.0); MEAN CORPUSCULAR HGB CONC 34.1 g/dl (32.0-36.5); MEAN CORPUSCULAR VOLUME 93.8 fl (80.0-96.0); MONO # 0.8 10^3/uL (0.0-0.8); MONO % 6.6 % (2.0-8.0); NEUTROPHILS # 9.9 10^3/uL (1.5-8.5); NEUTROPHILS % 86.7 % (36.0-66.0); PLATELET COUNT, AUTOMATED 277 10^3/uL (150-450); RED BLOOD COUNT 4.06 10^6/uL (4.30-6.10); WHITE BLOOD COUNT 11.4 10^3/uL (4.0-10.0)
[2021-07-14 16:19] VITALS: BP 146/89
[2021-07-14] MEDS: SIMVASTATIN 40 MG TAB PO SCH (21:32)
[2021-07-15] MEDS: OMEPRAZOLE 20MG CAP PO SCH (09:36)
[2021-07-15] MEDS: PALIPERIDONE 6 MG ER TAB (INVEGA) PO SCH (09:36)
[2021-07-15] MEDS: ESCITALOPRAM OXALATE 10 MG TAB (LEXAPRO) PO SCH (09:36)
[2021-07-15] MEDS: OLANZapine 10 MG TAB PO SCH ×2 (09:36→23:40)
[2021-07-15 16:26] VITALS: BP 106/58
[2021-07-15] MEDS: SIMVASTATIN 40 MG TAB PO SCH (23:40)
[2021-07-16] MEDS: OLANZapine ORAL DISINTEGRATING TAB 5MG PO PRN (01:28)
[2021-07-16 06:29] VITALS: BP 158/99
[2021-07-16] MEDS: OMEPRAZOLE 20MG CAP PO SCH (09:50)
[2021-07-16] MEDS: OLANZapine 10 MG TAB PO SCH ×2 (09:50→22:21)
[2021-07-16] MEDS: PALIPERIDONE 6 MG ER TAB (INVEGA) PO SCH (09:50)
[2021-07-16] MEDS: ESCITALOPRAM OXALATE 10 MG TAB (LEXAPRO) PO SCH (09:50)
[2021-07-16 17:47] VITALS: BP 141/84
[2021-07-16] MEDS: SIMVASTATIN 40 MG TAB PO SCH (22:00)
[2021-07-16] MEDS: PROPRANOLOL 20 MG TAB PO SCH (22:13)
[2021-07-17 06:49] VITALS: BP 120/63
[2021-07-17] MEDS: OMEPRAZOLE 20MG CAP PO SCH (09:29)
[2021-07-17] MEDS: ESCITALOPRAM OXALATE 10 MG TAB (LEXAPRO) PO SCH (09:30)
[2021-07-17] MEDS: PALIPERIDONE 3 MG ER TAB (INVEGA) PO SCH (09:30)
[2021-07-17] MEDS: PROPRANOLOL 20 MG TAB PO SCH ×2 (09:30→22:01)
[2021-07-17 19:12] VITALS: BP 115/60
[2021-07-17] MEDS: SIMVASTATIN 40 MG TAB PO SCH (21:57)
[2021-07-17] MEDS: OLANZapine 10 MG TAB PO SCH (21:57)
[2021-07-18] MEDS: PROPRANOLOL 20 MG TAB PO SCH ×2 (10:16→21:24)
[2021-07-18] MEDS: ESCITALOPRAM OXALATE 10 MG TAB (LEXAPRO) PO SCH (10:16)
[2021-07-18] MEDS: PALIPERIDONE 3 MG ER TAB (INVEGA) PO SCH (10:16)
[2021-07-18] MEDS: OMEPRAZOLE 20MG CAP PO SCH (10:16)
[2021-07-18] MEDS: LORazepam 0.5 MG TAB PO SCH ×3 (11:15→21:24)
[2021-07-18 15:20] LABS: ALBUMIN 3.2 GM/DL (3.2-5.2); BILIRUBIN,TOTAL 0.5 MG/DL (0.2-1.0); CALCIUM LEVEL 8.9 MG/DL (8.5-10.1); CREATININE FOR GFR 1.33 MG/DL (0.70-1.30); GLOMERULAR FILTRATION RATE 59.6 (>56); POTASSIUM SERUM 3.9 MEQ/L (3.5-5.1); TOTAL PROTEIN 6.4 GM/DL (6.4-8.2)
[2021-07-18 17:41] VITALS: BP 97/62
[2021-07-18] MEDS: OLANZapine 10 MG TAB PO SCH (21:24)
[2021-07-18] MEDS: SIMVASTATIN 40 MG TAB PO SCH (21:24)
[2021-07-19 06:05] VITALS: BP 124/82
[2021-07-19] MEDS: ESCITALOPRAM OXALATE 10 MG TAB (LEXAPRO) PO SCH (07:42)
[2021-07-19] MEDS: LORazepam 0.5 MG TAB PO SCH (07:44)
[2021-07-19] MEDS: PROPRANOLOL 20 MG TAB PO SCH ×2 (07:44→21:09)
[2021-07-19] MEDS: OMEPRAZOLE 20MG CAP PO SCH (07:45)
[2021-07-19] MEDS: LORazepam 1 MG TAB PO SCH ×2 (15:41→21:09)
[2021-07-19 17:56] VITALS: BP 146/90
[2021-07-19] MEDS: OLANZapine 10 MG TAB PO SCH (21:09)
[2021-07-19] MEDS: SIMVASTATIN 40 MG TAB PO SCH (21:09)
[2021-07-20 09:00] VITALS: BP 102/65
[2021-07-20] MEDS: PROPRANOLOL 20 MG TAB PO SCH (09:00)
[2021-07-20] MEDS: LORazepam 1 MG TAB PO SCH ×3 (10:02→22:32)
[2021-07-20] MEDS: OMEPRAZOLE 20MG CAP PO SCH (10:02)
[2021-07-20] MEDS: ESCITALOPRAM OXALATE 10 MG TAB (LEXAPRO) PO SCH (10:02)
[2021-07-20 10:39] LABS: HEMOGLOBIN A1c 5.8 %
[2021-07-20 18:57] VITALS: BP 104/55
[2021-07-20] MEDS: OLANZapine 10 MG TAB PO SCH (22:32)
[2021-07-20] MEDS: SIMVASTATIN 40 MG TAB PO SCH (22:32)
[2021-07-21 07:29] VITALS: BP 124/59
[2021-07-21] MEDS: OMEPRAZOLE 20MG CAP PO SCH (09:03)
[2021-07-21] MEDS: ESCITALOPRAM OXALATE 10 MG TAB (LEXAPRO) PO SCH (09:03)
[2021-07-21] MEDS: LORazepam 1 MG TAB PO SCH ×3 (09:03→22:30)
[2021-07-21 18:43] VITALS: BP 133/79
[2021-07-21] MEDS: OLANZapine 10 MG TAB PO SCH (22:30)
[2021-07-21] MEDS: SIMVASTATIN 40 MG TAB PO SCH (22:30)
[2021-07-22 07:06] VITALS: BP 124/57
[2021-07-22] MEDS: LORazepam 1 MG TAB PO SCH ×3 (09:14→21:07)
[2021-07-22] MEDS: ESCITALOPRAM OXALATE 10 MG TAB (LEXAPRO) PO SCH (09:14)
[2021-07-22] MEDS: OMEPRAZOLE 20MG CAP PO SCH (09:14)
[2021-07-22 18:39] VITALS: BP 120/79
[2021-07-22] MEDS: SIMVASTATIN 40 MG TAB PO SCH (21:07)
[2021-07-22] MEDS: OLANZapine 10 MG TAB PO SCH (21:07)
[2021-07-23] MEDS: OMEPRAZOLE 20MG CAP PO SCH (10:00)
[2021-07-23] MEDS: LORazepam 1 MG TAB PO SCH ×3 (10:00→20:21)
[2021-07-23] MEDS: ESCITALOPRAM OXALATE 10 MG TAB (LEXAPRO) PO SCH (10:00)
[2021-07-23 16:09] VITALS: BP 126/69
[2021-07-23] MEDS: SIMVASTATIN 40 MG TAB PO SCH (20:21)
[2021-07-23] MEDS: OLANZapine 10 MG TAB PO SCH (20:21)
[2021-07-24 06:14] VITALS: BP 11/59
[2021-07-24] MEDS: ESCITALOPRAM OXALATE 10 MG TAB (LEXAPRO) PO SCH (08:57)
[2021-07-24] MEDS: LORazepam 1 MG TAB PO SCH ×3 (08:57→20:38)
[2021-07-24] MEDS: OMEPRAZOLE 20MG CAP PO SCH (08:57)
[2021-07-24] MEDS ORDERED: BENZTROPINE 1 MG TAB PO PRN (14:45)
[2021-07-24 16:16] VITALS: BP 125/59
[2021-07-24 16:30] LABS: BASO % 0.3 % (0.0-1.0); EOS # 0.1 10^3/uL (0.0-0.5); EOS % 0.7 % (0.0-3.0); HEMATOCRIT 35.8 % (42.0-52.0); LYMPH % 9.2 % (24.0-44.0); MEAN CORPUSCULAR HEMOGLOBIN 31.8 pg (27.0-33.0); MEAN CORPUSCULAR HGB CONC 33.5 g/dl (32.0-36.5); MONO % 9.3 % (2.0-8.0); NEUTROPHILS # 8.5 10^3/uL (1.5-8.5); PLATELET COUNT, AUTOMATED 305 10^3/uL (150-450); RED BLOOD COUNT 3.77 10^6/uL (4.30-6.10); WHITE BLOOD COUNT 10.7 10^3/uL (4.0-10.0)
[2021-07-24] MEDS: PILL CUTTER 1 EACH XX PRN (20:38)
[2021-07-24] MEDS: OLANZapine 5 MG TAB PO SCH (20:38)
[2021-07-24] MEDS: SIMVASTATIN 40 MG TAB PO SCH (20:38)
[2021-07-24] MEDS: cloZAPine 25 MG TAB (S0136) PO SCH (20:39)
[2021-07-25 06:20] VITALS: BP 109/58
[2021-07-25] MEDS: ESCITALOPRAM OXALATE 10 MG TAB (LEXAPRO) PO SCH (08:26)
[2021-07-25] MEDS: OMEPRAZOLE 20MG CAP PO SCH (08:26)
[2021-07-25] MEDS: LORazepam 1 MG TAB PO SCH ×3 (08:26→20:39)
[2021-07-25] MEDS: PILL CUTTER 1 EACH XX PRN (08:45)
[2021-07-25] MEDS: cloZAPine 25 MG TAB (S0136) PO SCH ×2 (09:12→20:40)
[2021-07-25 16:28] VITALS: BP 102/56
[2021-07-25] MEDS: OLANZapine 5 MG TAB PO SCH (20:39)
[2021-07-25] MEDS: SIMVASTATIN 40 MG TAB PO SCH (20:40)
[2021-07-26 07:05] VITALS: BP 116/65
[2021-07-26] MEDS: OMEPRAZOLE 20MG CAP PO SCH (09:03)
[2021-07-26] MEDS: ESCITALOPRAM OXALATE 10 MG TAB (LEXAPRO) PO SCH (09:03)
[2021-07-26] MEDS: LORazepam 1 MG TAB PO SCH ×3 (09:03→20:47)
[2021-07-26] MEDS: cloZAPine 25 MG TAB (S0136) PO SCH ×2 (09:04→20:47)
[2021-07-26 15:31] VITALS: BP 102/70
[2021-07-26] MEDS: SIMVASTATIN 40 MG TAB PO SCH (20:47)
[2021-07-26] MEDS: OLANZapine 5 MG TAB PO SCH (20:47)
[2021-07-27 06:36] VITALS: BP 134/68
[2021-07-27 07:46] LABS: BASO % 0.3 % (0.0-1.0); EOS # 0.2 10^3/uL (0.0-0.5); HEMATOCRIT 37.3 % (42.0-52.0); HEMOGLOBIN 12.3 g/dl (13.5-17.5); LYMPH # 1.3 10^3/uL (1.5-5.0); LYMPH % 14.9 % (24.0-44.0); MEAN CORPUSCULAR HEMOGLOBIN 31.6 pg (27.0-33.0); MEAN CORPUSCULAR VOLUME 95.9 fl (80.0-96.0); MONO # 0.8 10^3/uL (0.0-0.8); NEUTROPHILS # 6.6 10^3/uL (1.5-8.5); NEUTROPHILS % 73.2 % (36.0-66.0); PLATELET COUNT, AUTOMATED 365 10^3/uL (150-450); RED BLOOD COUNT 3.89 10^6/uL (4.30-6.10)
[2021-07-27] MEDS: LORazepam 1 MG TAB PO SCH ×3 (08:10→20:40)
[2021-07-27] MEDS: ESCITALOPRAM OXALATE 10 MG TAB (LEXAPRO) PO SCH (08:11)
[2021-07-27] MEDS: cloZAPine 25 MG TAB (S0136) PO SCH ×2 (08:11→20:39)
[2021-07-27] MEDS: OMEPRAZOLE 20MG CAP PO SCH (08:14)
[2021-07-27] MEDS: PILL CUTTER 1 EACH XX PRN ×2 (15:44→20:39)
[2021-07-27 16:12] VITALS: BP 106/56
[2021-07-27] MEDS: SIMVASTATIN 40 MG TAB PO SCH (20:39)
[2021-07-28 06:50] VITALS: BP 131/70
[2021-07-28] MEDS: LORazepam 1 MG TAB PO SCH ×3 (08:49→21:01)
[2021-07-28] MEDS: PILL CUTTER 1 EACH XX PRN ×3 (08:49→21:01)
[2021-07-28] MEDS: ESCITALOPRAM OXALATE 10 MG TAB (LEXAPRO) PO SCH (08:51)
[2021-07-28] MEDS: OMEPRAZOLE 20MG CAP PO SCH (08:51)
[2021-07-28] MEDS: cloZAPine 25 MG TAB (S0136) PO SCH ×2 (08:53→21:01)
[2021-07-28 16:24] VITALS: BP 112/55
[2021-07-28] MEDS: SIMVASTATIN 40 MG TAB PO SCH (21:01)
[2021-07-29 07:06] VITALS: BP 132/76
[2021-07-29] MEDS: OMEPRAZOLE 20MG CAP PO SCH (08:30)
[2021-07-29] MEDS: ESCITALOPRAM OXALATE 10 MG TAB (LEXAPRO) PO SCH (08:30)
[2021-07-29] MEDS: cloZAPine 25 MG TAB (S0136) PO SCH ×2 (08:30→20:53)
[2021-07-29] MEDS: LORazepam 1 MG TAB PO SCH ×3 (08:30→20:53)
[2021-07-29] MEDS: PILL CUTTER 1 EACH XX PRN ×2 (15:57→20:51)
[2021-07-29 16:19] VITALS: BP 118/56
[2021-07-29] MEDS: SIMVASTATIN 40 MG TAB PO SCH (20:56)
[2021-07-30 06:52] VITALS: BP 114/65
[2021-07-30] MEDS: LORazepam 1 MG TAB PO SCH ×3 (09:21→21:57)
[2021-07-30] MEDS: cloZAPine 25 MG TAB (S0136) PO SCH ×2 (09:23→21:51)
[2021-07-30] MEDS: ESCITALOPRAM OXALATE 10 MG TAB (LEXAPRO) PO SCH (09:25)
[2021-07-30] MEDS: OMEPRAZOLE 20MG CAP PO SCH (09:25)
[2021-07-30 15:55] VITALS: BP 138/73
[2021-07-30] MEDS: SIMVASTATIN 40 MG TAB PO SCH (21:56)
[2021-07-31 07:10] VITALS: BP 108/63
[2021-07-31] MEDS: LORazepam 1 MG TAB PO SCH ×3 (10:12→21:34)
[2021-07-31] MEDS: ESCITALOPRAM OXALATE 10 MG TAB (LEXAPRO) PO SCH (10:13)
[2021-07-31] MEDS: OMEPRAZOLE 20MG CAP PO SCH (10:13)
[2021-07-31] MEDS: cloZAPine 25 MG TAB (S0136) PO SCH ×2 (10:14→21:34)
[2021-07-31 19:07] VITALS: BP 120/71
[2021-07-31] MEDS: PILL CUTTER 1 EACH XX PRN (21:34)
[2021-07-31] MEDS: SIMVASTATIN 40 MG TAB PO SCH (21:34)
[2021-08-01 06:24] VITALS: BP 118/84
[2021-08-01] MEDS: LORazepam 1 MG TAB PO SCH ×3 (09:18→20:32)
[2021-08-01] MEDS: ESCITALOPRAM OXALATE 10 MG TAB (LEXAPRO) PO SCH (09:18)
[2021-08-01] MEDS: cloZAPine 25 MG TAB (S0136) PO SCH ×2 (09:18→20:32)
[2021-08-01] MEDS: OMEPRAZOLE 20MG CAP PO SCH (09:21)
[2021-08-01 18:00] VITALS: BP 157/88
[2021-08-01] MEDS: SIMVASTATIN 40 MG TAB PO SCH (20:32)
[2021-08-01] MEDS: PILL CUTTER 1 EACH XX PRN (20:33)
[2021-08-02 06:30] VITALS: BP 126/66
[2021-08-02 08:37] LABS: BASO % 0.3 % (0.0-1.0); EOS # 0.2 10^3/uL (0.0-0.5); HEMATOCRIT 41.5 % (42.0-52.0); HEMOGLOBIN 13.6 g/dl (13.5-17.5); LYMPH # 1.8 10^3/uL (1.5-5.0); LYMPH % 19.3 % (24.0-44.0); MEAN CORPUSCULAR HEMOGLOBIN 31.5 pg (27.0-33.0); MEAN CORPUSCULAR HGB CONC 32.8 g/dl (32.0-36.5); MEAN CORPUSCULAR VOLUME 96.1 fl (80.0-96.0); MONO # 0.8 10^3/uL (0.0-0.8); MONO % 9.3 % (2.0-8.0); NEUTROPHILS # 6.2 10^3/uL (1.5-8.5); NEUTROPHILS % 68.5 % (36.0-66.0); PLATELET COUNT, AUTOMATED 412 10^3/uL (150-450); RED BLOOD COUNT 4.32 10^6/uL (4.30-6.10); WHITE BLOOD COUNT 9.1 10^3/uL (4.0-10.0)
[2021-08-02] MEDS: LORazepam 1 MG TAB PO SCH (09:08)
[2021-08-02] MEDS: ESCITALOPRAM OXALATE 10 MG TAB (LEXAPRO) PO SCH (09:08)
[2021-08-02] MEDS: OMEPRAZOLE 20MG CAP PO SCH (09:08)
[2021-08-02] MEDS: cloZAPine 25 MG TAB (S0136) PO SCH ×2 (09:09→20:28)
[2021-08-02] MEDS: OLANZapine ORAL DISINTEGRATING TAB 5MG PO PRN (13:12)
[2021-08-02 19:31] VITALS: BP 117/69
[2021-08-02] MEDS: PILL CUTTER 1 EACH XX PRN (20:27)
[2021-08-02] MEDS: SIMVASTATIN 40 MG TAB PO SCH (20:28)
[2021-08-02] MEDS: LORazepam 0.5 MG TAB PO SCH (20:28)
[2021-08-03 06:06] VITALS: BP 126/58
[2021-08-03] MEDS: ESCITALOPRAM OXALATE 10 MG TAB (LEXAPRO) PO SCH (09:00)
[2021-08-03] MEDS: LORazepam 0.5 MG TAB PO SCH ×2 (09:00→21:51)
[2021-08-03] MEDS: OMEPRAZOLE 20MG CAP PO SCH (09:00)
[2021-08-03] MEDS: cloZAPine 25 MG TAB (S0136) PO SCH (09:00)
[2021-08-03] MEDS: PILL CUTTER 1 EACH XX PRN (09:00)
[2021-08-03 15:24] LABS: BASO % 0.2 % (0.0-1.0); EOS # 0.1 10^3/uL (0.0-0.5); EOS % 1.2 % (0.0-3.0); HEMATOCRIT 37.4 % (42.0-52.0); HEMOGLOBIN 12.6 g/dl (13.5-17.5); LYMPH % 10.6 % (24.0-44.0); MEAN CORPUSCULAR HEMOGLOBIN 32.2 pg (27.0-33.0); MEAN CORPUSCULAR HGB CONC 33.7 g/dl (32.0-36.5); MEAN CORPUSCULAR VOLUME 95.7 fl (80.0-96.0); MONO % 10.4 % (2.0-8.0); NEUTROPHILS # 7.2 10^3/uL (1.5-8.5); NEUTROPHILS % 77.2 % (36.0-66.0); PLATELET COUNT, AUTOMATED 372 10^3/uL (150-450); RED BLOOD COUNT 3.91 10^6/uL (4.30-6.10); WHITE BLOOD COUNT 9.3 10^3/uL (4.0-10.0)
[2021-08-03 19:13] VITALS: BP 131/76
[2021-08-03] MEDS: cloZAPine 100 MG TAB (S0136) PO SCH (21:51)
[2021-08-03] MEDS: SIMVASTATIN 40 MG TAB PO SCH (21:51)
[2021-08-04 06:41] VITALS: BP 131/62
[2021-08-04] MEDS: cloZAPine 25 MG TAB (S0136) PO SCH (09:50)
[2021-08-04] MEDS: LORazepam 0.5 MG TAB PO SCH ×2 (09:50→21:51)
[2021-08-04] MEDS: ESCITALOPRAM OXALATE 10 MG TAB (LEXAPRO) PO SCH (09:51)
[2021-08-04] MEDS: OMEPRAZOLE 20MG CAP PO SCH (09:51)
[2021-08-04 18:38] VITALS: BP 107/68
[2021-08-04] MEDS: SIMVASTATIN 40 MG TAB PO SCH (21:51)
[2021-08-04] MEDS: cloZAPine 100 MG TAB (S0136) PO SCH (21:51)
[2021-08-05 06:53] VITALS: BP 115/68
[2021-08-05] MEDS: OMEPRAZOLE 20MG CAP PO SCH (09:41)
[2021-08-05] MEDS: LORazepam 0.5 MG TAB PO SCH ×2 (09:41→20:36)
[2021-08-05] MEDS: ESCITALOPRAM OXALATE 10 MG TAB (LEXAPRO) PO SCH (09:41)
[2021-08-05] MEDS: cloZAPine 25 MG TAB (S0136) PO SCH (09:41)
[2021-08-05 18:19] VITALS: BP 143/65
[2021-08-05 20:01] LABS: BASO % 0.4 % (0.0-1.0); EOS # 0.2 10^3/uL (0.0-0.5); EOS % 1.4 % (0.0-3.0); HEMATOCRIT 37.7 % (42.0-52.0); HEMOGLOBIN 12.6 g/dl (13.5-17.5); LYMPH # 1.1 10^3/uL (1.5-5.0); LYMPH % 10.8 % (24.0-44.0); MEAN CORPUSCULAR HEMOGLOBIN 32.1 pg (27.0-33.0); MEAN CORPUSCULAR HGB CONC 33.4 g/dl (32.0-36.5); MEAN CORPUSCULAR VOLUME 96.2 fl (80.0-96.0); MONO # 0.9 10^3/uL (0.0-0.8); MONO % 8.9 % (2.0-8.0); NEUTROPHILS # 8.1 10^3/uL (1.5-8.5); NEUTROPHILS % 78.1 % (36.0-66.0); PLATELET COUNT, AUTOMATED 358 10^3/uL (150-450); RED BLOOD COUNT 3.92 10^6/uL (4.30-6.10); WHITE BLOOD COUNT 10.4 10^3/uL (4.0-10.0)
[2021-08-05 20:24] LABS: ALBUMIN 3.2 GM/DL (3.2-5.2); ALT/SGPT 21 U/L (12-78); BILIRUBIN,TOTAL 0.2 MG/DL (0.2-1.0); BLOOD UREA NITROGEN 16 MG/DL (7-18); CALCIUM LEVEL 8.7 MG/DL (8.5-10.1); CARBON DIOXIDE LEVEL 30 MEQ/L (21-32); CHLORIDE LEVEL 107 MEQ/L (98-107); CREATININE FOR GFR 1.06 MG/DL (0.70-1.30); GLOMERULAR FILTRATION RATE > 60.0 (>56); GLUCOSE, FASTING 91 MG/DL (70-100); POTASSIUM SERUM 4.2 MEQ/L (3.5-5.1); SODIUM LEVEL 142 MEQ/L (136-145); TOTAL PROTEIN 6.4 GM/DL (6.4-8.2)
[2021-08-05] MEDS: SIMVASTATIN 40 MG TAB PO SCH (20:36)
[2021-08-05] MEDS: APIXABAN 5 MG TAB (ELIQUIS) PO SCH (20:36)
[2021-08-05] MEDS: cloZAPine 100 MG TAB (S0136) PO SCH (20:36)
[2021-08-06 00:16] LABS: INR 1.1; PROTHROMBIN TIME 14.6 SECONDS (12.7-14.5)
[2021-08-06 00:17] LABS: PARTIAL THROMBOPLASTIN TIME 33.1 SECONDS (25.9-37.0)
[2021-08-06 06:28] VITALS: BP 124/72
[2021-08-06] MEDS: LORazepam 0.5 MG TAB PO SCH ×2 (09:56→20:47)
[2021-08-06] MEDS: OMEPRAZOLE 20MG CAP PO SCH (09:56)
[2021-08-06] MEDS: APIXABAN 5 MG TAB (ELIQUIS) PO SCH ×2 (09:56→20:47)
[2021-08-06] MEDS: cloZAPine 25 MG TAB (S0136) PO SCH (09:56)
[2021-08-06] MEDS: ESCITALOPRAM OXALATE 10 MG TAB (LEXAPRO) PO SCH (09:56)
[2021-08-06 16:59] VITALS: BP 104/66
[2021-08-06] MEDS: SIMVASTATIN 40 MG TAB PO SCH (20:47)
[2021-08-06] MEDS: cloZAPine 100 MG TAB (S0136) PO SCH (20:47)
[2021-08-07 06:13] VITALS: BP 137/63
[2021-08-07 08:09] LABS: CLOZAPINE 1 208 ng/mL (350-650); CLOZAPINE 2 64 ng/mL (Not Estab.); CLOZAPINE 3 272 ng/mL (.)
[2021-08-07] MEDS: APIXABAN 5 MG TAB (ELIQUIS) PO SCH ×2 (09:42→21:56)
[2021-08-07] MEDS: LORazepam 0.5 MG TAB PO SCH ×2 (09:42→21:56)
[2021-08-07] MEDS: OMEPRAZOLE 20MG CAP PO SCH (09:42)
[2021-08-07] MEDS: ESCITALOPRAM OXALATE 10 MG TAB (LEXAPRO) PO SCH (09:42)
[2021-08-07] MEDS: cloZAPine 25 MG TAB (S0136) PO SCH (09:42)
[2021-08-07] MEDS ORDERED: ISOVUE-370 76% 100ML VIAL As Ordered ONE (14:46)
[2021-08-07 16:28] VITALS: BP 129/80
[2021-08-07] MEDS: SIMVASTATIN 40 MG TAB PO SCH (21:56)
[2021-08-07] MEDS: cloZAPine 100 MG TAB (S0136) PO SCH (21:56)
[2021-08-07] MEDS: traZODone 25MG PER 1/2 TABLET PO PRN (21:59)
[2021-08-08 06:35] VITALS: BP 115/58
[2021-08-08] MEDS: APIXABAN 5 MG TAB (ELIQUIS) PO SCH ×2 (09:07→20:40)
[2021-08-08] MEDS: LORazepam 0.5 MG TAB PO SCH ×2 (09:07→20:40)
[2021-08-08] MEDS: OMEPRAZOLE 20MG CAP PO SCH (09:07)
[2021-08-08] MEDS: cloZAPine 25 MG TAB (S0136) PO SCH (09:07)
[2021-08-08] MEDS: ESCITALOPRAM OXALATE 10 MG TAB (LEXAPRO) PO SCH (09:08)
[2021-08-08 16:20] VITALS: BP 128/81
[2021-08-08] MEDS: traZODone 25MG PER 1/2 TABLET PO PRN (20:40)
[2021-08-08] MEDS: SIMVASTATIN 40 MG TAB PO SCH (20:40)
[2021-08-08] MEDS: cloZAPine 100 MG TAB (S0136) PO SCH (20:40)
[2021-08-09 06:53] VITALS: BP 141/94
[2021-08-09 08:21] LABS: BASO % 0.5 % (0.0-1.0); EOS # 0.2 10^3/uL (0.0-0.5); EOS % 2.4 % (0.0-3.0); HEMATOCRIT 38.7 % (42.0-52.0); HEMOGLOBIN 13.1 g/dl (13.5-17.5); LYMPH # 1.3 10^3/uL (1.5-5.0); LYMPH % 15.6 % (24.0-44.0); MEAN CORPUSCULAR HGB CONC 33.9 g/dl (32.0-36.5); MEAN CORPUSCULAR VOLUME 94.4 fl (80.0-96.0); MONO # 0.8 10^3/uL (0.0-0.8); MONO % 9.3 % (2.0-8.0); NEUTROPHILS # 6.1 10^3/uL (1.5-8.5); NEUTROPHILS % 71.6 % (36.0-66.0); PLATELET COUNT, AUTOMATED 367 10^3/uL (150-450); WHITE BLOOD COUNT 8.5 10^3/uL (4.0-10.0)
[2021-08-09] MEDS: LORazepam 0.5 MG TAB PO SCH ×3 (09:23→21:44)
[2021-08-09] MEDS: ESCITALOPRAM OXALATE 10 MG TAB (LEXAPRO) PO SCH (09:23)
[2021-08-09] MEDS: OMEPRAZOLE 20MG CAP PO SCH (09:23)
[2021-08-09] MEDS: cloZAPine 25 MG TAB (S0136) PO SCH ×2 (09:24→21:44)
[2021-08-09] MEDS: APIXABAN 5 MG TAB (ELIQUIS) PO SCH ×2 (09:24→21:44)
[2021-08-09 11:20] LABS: DRVV SCREEN 82.2 SEC
[2021-08-09 11:27] LABS: PTT LUPUS TYPE ANTICOAG SCREEN 2.2 (0-1.2)
[2021-08-09 11:35] LABS: DRVV CONFIRM 69.3 SEC; LUPUS CONFIRM RATIO 1.9
[2021-08-09 11:43] LABS: NORMALIZED RATIO 1.16 (0.00-1.20)
[2021-08-09 18:43] VITALS: BP 114/60
[2021-08-09] MEDS ORDERED: cloZAPine 25 MG TAB (S0136) PO SCH (21:00)
[2021-08-09] MEDS ORDERED: cloZAPine 100 MG TAB (S0136) PO SCH ×2 (21:00)
[2021-08-09] MEDS: SIMVASTATIN 40 MG TAB PO SCH (21:44)
[2021-08-10 02:07] LABS: ANTI THROMBIN 3 ANTIGEN IMMUNO 105 % (72-124); ANTI THROMBIN 3 FUNCT ACTIVITY 143 % (75-135); ANTINUCLEAR ANTIBODIES DIRECT Negative (Negative); CARDIOLIPIN IGA ANTIBODY <9 APL U/mL (0-11); CARDIOLIPIN IGG ANTIBODY 12 GPL U/mL (0-14); CARDIOLIPIN IGM ANTIBODY 12 MPL U/mL (0-12); PROTEIN C FUNCTIONAL ACTIVITY 112 % (73-180); PROTEIN S FUNCTIONAL ACTIVITY 86 % (63-140)
[2021-08-10 06:28] VITALS: BP 112/61
[2021-08-10] MEDS: cloZAPine 25 MG TAB (S0136) PO SCH ×2 (10:04→21:03)
[2021-08-10] MEDS: OMEPRAZOLE 20MG CAP PO SCH (10:05)
[2021-08-10] MEDS: APIXABAN 5 MG TAB (ELIQUIS) PO SCH ×2 (10:05→21:03)
[2021-08-10] MEDS: LORazepam 0.5 MG TAB PO SCH ×3 (10:05→21:03)
[2021-08-10] MEDS: ESCITALOPRAM OXALATE 10 MG TAB (LEXAPRO) PO SCH (10:05)
[2021-08-10 18:29] VITALS: BP 117/69
[2021-08-10] MEDS: SIMVASTATIN 40 MG TAB PO SCH (21:03)
[2021-08-10] MEDS: cloZAPine 100 MG TAB (S0136) PO SCH (21:04)
[2021-08-11 06:20] VITALS: BP 143/69
[2021-08-11] MEDS: LORazepam 0.5 MG TAB PO SCH ×3 (09:31→20:42)
[2021-08-11] MEDS: OMEPRAZOLE 20MG CAP PO SCH (09:31)
[2021-08-11] MEDS: ESCITALOPRAM OXALATE 10 MG TAB (LEXAPRO) PO SCH (09:31)
[2021-08-11] MEDS: cloZAPine 25 MG TAB (S0136) PO SCH ×2 (09:31→20:42)
[2021-08-11] MEDS: APIXABAN 5 MG TAB (ELIQUIS) PO SCH ×2 (10:26→20:42)
[2021-08-11 16:36] VITALS: BP 120/70
[2021-08-11] MEDS: PILL CUTTER 1 EACH XX PRN (20:41)
[2021-08-11] MEDS: cloZAPine 100 MG TAB (S0136) PO SCH (20:42)
[2021-08-11] MEDS: SIMVASTATIN 40 MG TAB PO SCH (20:42)
[2021-08-12 06:35] VITALS: BP 122/59
[2021-08-12] MEDS: ESCITALOPRAM OXALATE 10 MG TAB (LEXAPRO) PO SCH (08:52)
[2021-08-12] MEDS: APIXABAN 5 MG TAB (ELIQUIS) PO SCH ×2 (08:52→21:35)
[2021-08-12] MEDS: OMEPRAZOLE 20MG CAP PO SCH (08:52)
[2021-08-12] MEDS: LORazepam 0.5 MG TAB PO SCH ×3 (08:52→21:36)
[2021-08-12] MEDS: cloZAPine 25 MG TAB (S0136) PO SCH ×2 (08:52→21:36)
[2021-08-12 16:28] VITALS: BP 114/62
[2021-08-12] MEDS: cloZAPine 100 MG TAB (S0136) PO SCH (21:35)
[2021-08-12] MEDS: SIMVASTATIN 40 MG TAB PO SCH (21:35)
[2021-08-13 06:37] VITALS: BP 121/65
[2021-08-13] MEDS: APIXABAN 5 MG TAB (ELIQUIS) PO SCH ×2 (09:17→20:52)
[2021-08-13] MEDS: LORazepam 0.5 MG TAB PO SCH ×2 (09:17→20:52)
[2021-08-13] MEDS: OMEPRAZOLE 20MG CAP PO SCH (09:17)
[2021-08-13] MEDS: cloZAPine 25 MG TAB (S0136) PO SCH ×2 (09:17→20:52)
[2021-08-13] MEDS: ESCITALOPRAM OXALATE 10 MG TAB (LEXAPRO) PO SCH (09:17)
[2021-08-13 19:14] VITALS: BP 134/69
[2021-08-13] MEDS: SIMVASTATIN 40 MG TAB PO SCH (20:51)
[2021-08-13] MEDS: cloZAPine 100 MG TAB (S0136) PO SCH (20:52)
[2021-08-14 06:30] VITALS: BP 118/54
[2021-08-14] MEDS: OMEPRAZOLE 20MG CAP PO SCH (09:36)
[2021-08-14] MEDS: cloZAPine 25 MG TAB (S0136) PO SCH ×2 (09:36→21:04)
[2021-08-14] MEDS: ESCITALOPRAM OXALATE 10 MG TAB (LEXAPRO) PO SCH (09:36)
[2021-08-14] MEDS: LORazepam 0.5 MG TAB PO SCH ×2 (09:36→21:05)
[2021-08-14] MEDS: APIXABAN 5 MG TAB (ELIQUIS) PO SCH ×2 (09:36→21:05)
[2021-08-14] MEDS ORDERED: SENOKOT S TAB PO PRN (14:40)
[2021-08-14 18:44] VITALS: BP 147/71
[2021-08-14 19:08] LABS: CLOZAPINE 1 258 ng/mL (350-650); CLOZAPINE 2 106 ng/mL (Not Estab.); CLOZAPINE 3 364 ng/mL (.)
[2021-08-14] MEDS: SIMVASTATIN 40 MG TAB PO SCH (21:04)
[2021-08-14] MEDS: cloZAPine 100 MG TAB (S0136) PO SCH (21:04)
[2021-08-15 06:00] VITALS: BP 126/64
[2021-08-15] MEDS: APIXABAN 5 MG TAB (ELIQUIS) PO SCH ×2 (09:00→21:22)
[2021-08-15] MEDS: ESCITALOPRAM OXALATE 10 MG TAB (LEXAPRO) PO SCH (09:01)
[2021-08-15] MEDS: LORazepam 0.5 MG TAB PO SCH ×2 (09:01→21:22)
[2021-08-15] MEDS: OMEPRAZOLE 20MG CAP PO SCH (09:01)
[2021-08-15] MEDS: cloZAPine 25 MG TAB (S0136) PO SCH ×2 (09:01→21:22)
[2021-08-15 13:38] LABS: BASO % 0.3 % (0.0-1.0); EOS # 0.1 10^3/uL (0.0-0.5); EOS % 0.9 % (0.0-3.0); HEMATOCRIT 39.4 % (42.0-52.0); LYMPH # 0.9 10^3/uL (1.5-5.0); LYMPH % 9.2 % (24.0-44.0); MEAN CORPUSCULAR HEMOGLOBIN 31.2 pg (27.0-33.0); MEAN CORPUSCULAR VOLUME 94.5 fl (80.0-96.0); MONO # 0.6 10^3/uL (0.0-0.8); MONO % 6.6 % (2.0-8.0); NEUTROPHILS # 7.9 10^3/uL (1.5-8.5); NEUTROPHILS % 82.6 % (36.0-66.0); PLATELET COUNT, AUTOMATED 369 10^3/uL (150-450); RED BLOOD COUNT 4.17 10^6/uL (4.30-6.10); WHITE BLOOD COUNT 9.6 10^3/uL (4.0-10.0)
[2021-08-15 17:52] VITALS: BP 148/98
[2021-08-15] MEDS: SIMVASTATIN 40 MG TAB PO SCH (21:22)
[2021-08-15] MEDS: cloZAPine 100 MG TAB (S0136) PO SCH (21:22)
[2021-08-15] MEDS: OLANZapine ORAL DISINTEGRATING TAB 5MG PO PRN (21:49)
[2021-08-15] MEDS: traZODone 25MG PER 1/2 TABLET PO PRN (21:50)
[2021-08-16 06:50] VITALS: BP 109/53
[2021-08-16] MEDS: APIXABAN 5 MG TAB (ELIQUIS) PO SCH ×2 (09:08→20:56)
[2021-08-16] MEDS: LORazepam 0.5 MG TAB PO SCH ×2 (09:08→20:56)
[2021-08-16] MEDS: OMEPRAZOLE 20MG CAP PO SCH (09:08)
[2021-08-16] MEDS: cloZAPine 25 MG TAB (S0136) PO SCH ×2 (09:08→20:56)
[2021-08-16] MEDS: ESCITALOPRAM OXALATE 10 MG TAB (LEXAPRO) PO SCH (09:09)
[2021-08-16 09:26] LABS: BASO % 0.4 % (0.0-1.0); EOS # 0.1 10^3/uL (0.0-0.5); EOS % 1.7 % (0.0-3.0); HEMATOCRIT 39.5 % (42.0-52.0); HEMOGLOBIN 12.9 g/dl (13.5-17.5); LYMPH # 1.4 10^3/uL (1.5-5.0); LYMPH % 16.9 % (24.0-44.0); MEAN CORPUSCULAR HEMOGLOBIN 31.5 pg (27.0-33.0); MEAN CORPUSCULAR HGB CONC 32.7 g/dl (32.0-36.5); MEAN CORPUSCULAR VOLUME 96.6 fl (80.0-96.0); MONO # 0.6 10^3/uL (0.0-0.8); MONO % 7.7 % (2.0-8.0); NEUTROPHILS % 72.9 % (36.0-66.0); PLATELET COUNT, AUTOMATED 350 10^3/uL (150-450); RED BLOOD COUNT 4.09 10^6/uL (4.30-6.10); WHITE BLOOD COUNT 8.3 10^3/uL (4.0-10.0)
[2021-08-16 17:32] VITALS: BP 121/75
[2021-08-16] MEDS: SIMVASTATIN 40 MG TAB PO SCH (20:56)
[2021-08-16] MEDS: cloZAPine 100 MG TAB (S0136) PO SCH (20:56)
[2021-08-17 06:44] VITALS: BP 114/61
[2021-08-17] MEDS: LORazepam 0.5 MG TAB PO SCH ×2 (08:57→21:25)
[2021-08-17] MEDS: APIXABAN 5 MG TAB (ELIQUIS) PO SCH ×2 (08:57→21:25)
[2021-08-17] MEDS: OMEPRAZOLE 20MG CAP PO SCH (08:58)
[2021-08-17] MEDS: ESCITALOPRAM OXALATE 10 MG TAB (LEXAPRO) PO SCH (08:58)
[2021-08-17] MEDS: cloZAPine 25 MG TAB (S0136) PO SCH (08:58)
[2021-08-17 17:54] VITALS: BP 138/88
[2021-08-17] MEDS ORDERED: cloZAPine 25 MG TAB (S0136) PO SCH (21:00)
[2021-08-17] MEDS: SIMVASTATIN 40 MG TAB PO SCH (21:24)
[2021-08-17] MEDS: cloZAPine 100 MG TAB (S0136) PO SCH (21:25)
[2021-08-18] MEDS: traZODone 25MG PER 1/2 TABLET PO PRN (01:04)
[2021-08-18] MEDS: OLANZapine ORAL DISINTEGRATING TAB 5MG PO PRN (01:04)
[2021-08-18 06:31] VITALS: BP 111/72
[2021-08-18] MEDS: LORazepam 0.5 MG TAB PO SCH ×2 (08:57→21:15)
[2021-08-18] MEDS: cloZAPine 25 MG TAB (S0136) PO SCH (08:58)
[2021-08-18] MEDS: OMEPRAZOLE 20MG CAP PO SCH (08:58)
[2021-08-18] MEDS: APIXABAN 5 MG TAB (ELIQUIS) PO SCH ×2 (08:58→21:15)
[2021-08-18] MEDS: ESCITALOPRAM OXALATE 10 MG TAB (LEXAPRO) PO SCH (08:58)
[2021-08-18 19:05] VITALS: BP 122/71
[2021-08-18] MEDS: SIMVASTATIN 40 MG TAB PO SCH (21:15)
[2021-08-18] MEDS: cloZAPine 100 MG TAB (S0136) PO SCH (21:15)
[2021-08-19 06:43] VITALS: BP 107/67
[2021-08-19] MEDS: ESCITALOPRAM OXALATE 10 MG TAB (LEXAPRO) PO SCH (09:08)
[2021-08-19] MEDS: LORazepam 0.5 MG TAB PO SCH ×2 (09:09→21:04)
[2021-08-19] MEDS: APIXABAN 5 MG TAB (ELIQUIS) PO SCH ×2 (09:09→21:04)
[2021-08-19] MEDS: cloZAPine 25 MG TAB (S0136) PO SCH (09:09)
[2021-08-19] MEDS: OMEPRAZOLE 20MG CAP PO SCH (09:10)
[2021-08-19 18:47] VITALS: BP 114/65
[2021-08-19] MEDS: SIMVASTATIN 40 MG TAB PO SCH (21:04)
[2021-08-19] MEDS: cloZAPine 100 MG TAB (S0136) PO SCH (21:04)
[2021-08-20 06:32] VITALS: BP 120/75
[2021-08-20] MEDS: APIXABAN 5 MG TAB (ELIQUIS) PO SCH ×2 (09:39→21:29)
[2021-08-20] MEDS: LORazepam 0.5 MG TAB PO SCH ×2 (09:39→21:30)
[2021-08-20] MEDS: cloZAPine 25 MG TAB (S0136) PO SCH (09:39)
[2021-08-20] MEDS: ESCITALOPRAM OXALATE 10 MG TAB (LEXAPRO) PO SCH (09:40)
[2021-08-20] MEDS: OMEPRAZOLE 20MG CAP PO SCH (09:40)
[2021-08-20 16:06] VITALS: BP 110/56
[2021-08-20] MEDS ORDERED: LORazepam 0.5 MG TAB PO SCH (21:00)
[2021-08-20] MEDS ORDERED: HALOPERIDOL 0.25MG PER 1/2 TABLET PO SCH (21:00)
[2021-08-20] MEDS: SIMVASTATIN 40 MG TAB PO SCH (21:29)
[2021-08-20] MEDS: cloZAPine 100 MG TAB (S0136) PO SCH (21:30)
[2021-08-21 06:15] VITALS: BP 130/71
[2021-08-21] MEDS: APIXABAN 5 MG TAB (ELIQUIS) PO SCH ×2 (09:02→21:30)
[2021-08-21] MEDS: ESCITALOPRAM OXALATE 10 MG TAB (LEXAPRO) PO SCH (09:03)
[2021-08-21] MEDS: LORazepam 0.5 MG TAB PO SCH ×2 (09:03→21:30)
[2021-08-21] MEDS: OMEPRAZOLE 20MG CAP PO SCH (09:03)
[2021-08-21] MEDS: cloZAPine 25 MG TAB (S0136) PO SCH (09:03)
[2021-08-21 17:13] VITALS: BP 124/64
[2021-08-21] MEDS: SIMVASTATIN 40 MG TAB PO SCH (21:30)
[2021-08-21] MEDS: cloZAPine 100 MG TAB (S0136) PO SCH (21:31)
[2021-08-22 06:34] VITALS: BP 122/70
[2021-08-22] MEDS: APIXABAN 5 MG TAB (ELIQUIS) PO SCH ×2 (08:58→20:53)
[2021-08-22] MEDS: cloZAPine 25 MG TAB (S0136) PO SCH (08:58)
[2021-08-22] MEDS: ESCITALOPRAM OXALATE 10 MG TAB (LEXAPRO) PO SCH (08:58)
[2021-08-22] MEDS: OMEPRAZOLE 20MG CAP PO SCH (08:58)
[2021-08-22] MEDS: LORazepam 0.5 MG TAB PO SCH ×2 (08:58→20:53)
[2021-08-22 17:19] VITALS: BP 102/53
[2021-08-22] MEDS: SIMVASTATIN 40 MG TAB PO SCH (20:53)
[2021-08-22] MEDS: cloZAPine 100 MG TAB (S0136) PO SCH (20:53)
[2021-08-23 06:39] VITALS: BP 126/60
[2021-08-23] MEDS: ESCITALOPRAM OXALATE 10 MG TAB (LEXAPRO) PO SCH (09:00)
[2021-08-23] MEDS: LORazepam 0.5 MG TAB PO SCH ×2 (09:00→20:46)
[2021-08-23] MEDS: OMEPRAZOLE 20MG CAP PO SCH (09:00)
[2021-08-23] MEDS: cloZAPine 25 MG TAB (S0136) PO SCH (09:00)
[2021-08-23] MEDS: APIXABAN 5 MG TAB (ELIQUIS) PO SCH ×2 (09:00→20:46)
[2021-08-23 09:01] LABS: BASO % 0.4 % (0.0-1.0); EOS # 0.2 10^3/uL (0.0-0.5); EOS % 2.6 % (0.0-3.0); HEMATOCRIT 40.2 % (42.0-52.0); HEMOGLOBIN 12.9 g/dl (13.5-17.5); LYMPH # 1.5 10^3/uL (1.5-5.0); LYMPH % 19.6 % (24.0-44.0); MEAN CORPUSCULAR HEMOGLOBIN 31.4 pg (27.0-33.0); MEAN CORPUSCULAR HGB CONC 32.1 g/dl (32.0-36.5); MEAN CORPUSCULAR VOLUME 97.8 fl (80.0-96.0); MONO # 0.6 10^3/uL (0.0-0.8); MONO % 8.2 % (2.0-8.0); NEUTROPHILS # 5.3 10^3/uL (1.5-8.5); NEUTROPHILS % 68.7 % (36.0-66.0); PLATELET COUNT, AUTOMATED 326 10^3/uL (150-450); RED BLOOD COUNT 4.11 10^6/uL (4.30-6.10); WHITE BLOOD COUNT 7.7 10^3/uL (4.0-10.0)
[2021-08-23 18:28] VITALS: BP 98/65
[2021-08-23] MEDS: cloZAPine 100 MG TAB (S0136) PO SCH (20:46)
[2021-08-23] MEDS: SIMVASTATIN 40 MG TAB PO SCH (20:46)
[2021-08-24 06:37] VITALS: BP 147/65
[2021-08-24] MEDS ORDERED: BENZ-52 PO (09:01)
[2021-08-24] MEDS ORDERED: CLOZ25TA3 PO (09:01)
[2021-08-24] MEDS ORDERED: LEXA1TAB PO (09:01)
[2021-08-24] MEDS ORDERED: ATIV1TAB10 PO (09:01)
[2021-08-24] MEDS ORDERED: ELIQ5TAB PO (09:01)
[2021-08-24] MEDS ORDERED: CLOZ100T2 PO ×2 (09:01→09:03)
[2021-08-24] MEDS: ESCITALOPRAM OXALATE 10 MG TAB (LEXAPRO) PO SCH (09:04)
[2021-08-24] MEDS: LORazepam 0.5 MG TAB PO SCH (09:04)
[2021-08-24] MEDS: APIXABAN 5 MG TAB (ELIQUIS) PO SCH (09:04)
[2021-08-24] MEDS: OMEPRAZOLE 20MG CAP PO SCH (09:04)
[2021-08-24] MEDS: cloZAPine 25 MG TAB (S0136) PO SCH (09:04)
[2021-08-28 08:09] LABS: CLOZAPINE 1 475 ng/mL (350-650); CLOZAPINE 2 147 ng/mL (Not Estab.); CLOZAPINE 3 622 ng/mL (.)
== END 2021-08-24 14:22 | disposition home or self-care (01) | DRG 750 ==
LOC: M ED 16:25 → M ED INP 19:44 → M PSY 22:20
PROVIDERS: ADMIT Student in an Organized Health Care Education/Training Program; ATTEND Student in an Organized Health Care Education/Training Program
DX: F25.0 Schizoaffective disorder, bipolar type (principal); D68.51 Activated protein C resistance; I82.412 Acute embolism and thrombosis of left femoral vein; Z91.14 Patient's other noncompliance with medication regimen; Z79.899 Other long term (current) drug therapy; I10 Essential (primary) hypertension; E78.00 Pure hypercholesterolemia, unspecified; K21.9 Gastro-esophageal reflux disease without esophagitis; D17.0 Benign lipomatous neoplasm of skin and subcutaneous tissue of head, face and neck; R41.9 Unspecified symptoms and signs involving cognitive functions and awareness; S01.01XA Laceration without foreign body of scalp, initial encounter; R53.1 Weakness; G24.01 Drug induced subacute dyskinesia; T46.905A Adverse effect of unspecified agents primarily affecting the cardiovascular system, initial encounter; W18.09XA Striking against other object with subsequent fall, initial encounter; Y92.239 Unspecified place in hospital as the place of occurrence of the external cause; Y99.8 Other external cause status; Y93.9 Activity, unspecified